=== PATIENT | female | born 1955 | race Two or more races ===

== ENCOUNTER 2025-05-18 18:14 | Emergency (ER) | payer MEDICAID, SELFPAY ==
--- NOTE | 2025-05-18 18:41 | EDNOTE_ITS ---
ED Abdominal Pain RME/HPI General Chief Complaint: Abdominal Pain Stated complaint: ABD PAIN, L) BACK PAIN, HEADACHE Time seen by provider: 05/18/25 18:46 Arrival date/time: 05/18/25 18:14 RME / HPI RME / HPI narrative: See MDM for Dr. Feliz's HPI documentation. Related Data Previous Rx's ?Medication ?Instructions ?Recorded docusate sodium 100 mg capsule 100 mg PO BID #40 caps 08/27/23 (Colace) hydrocodone 5 mg-acetaminophen 325 1 tab PO Q6H PRN pa in (scale score 08/27/23 mg tablet 7-10) #20 tabs ibuprofen 600 mg tablet 600 mg PO Q8H PRN pain (scal e 08/27/23 score 4-6) #15 tabs sulfamethoxazole 800 1 tab PO BID #10 tabs mg-trimethoprim 160 mg tablet cephalexin 500 mg capsule 500 mg PO QID #20 caps 01/01 dicyclomine 20 mg tablet 20 mg PO QID PRN abdominal p ain 01/02/24 #14 tabs lorazepam 0.5 mg tablet (Ativan) 0.5 mg PO BID PRN anx iety #14 tabs 01/02/24 acetaminophen 300 mg-codeine 30 mg 1 tab PO Q8H PRN pa in #20 tabs 05/18/25 tablet cefdinir 300 mg capsule 300 mg PO BID #14 caps 05/18 ondansetron 4 mg disintegrating 4 mg PO TID PRN nausea and 05/18/25 tablet vomiting 30 days #10 tabs Allergies Allergy/AdvReac Type Severity Reaction Status Date / Time No Known Allergies Allergy Verified 05/18/25 18:19 Review of Systems Review of Systems Systems Reviewed: All systems reviewed, normal except as documented Past Medical History Past Medical History NEUROLOGIC: Positive Seizures; Negative Neurological Disorders CARDIAC: Positive Hypertension; Negative Cardiac Disorders or Congestive Heart Failure RESPIRATORY: Negative Chronic Obstructive Pulmonary Disease (COPD) or Asthma GASTROINTESTINAL: Positive Gastrointestinal Disorders and Gall Bladder Disease GENITOURINARY: Negative Genitourinary Disorders or Renal Disease REPRODUCTIVE: Positive Previous Pregnancies MUSCULOSKELETAL: Positive Musculoskeletal Disorders and Arthritis ENT: Positive Cataracts (bilateral) and Retinal Detachment (left eye) ENDOCRINE: Positive Endocrine Disorders and Diabetes Mellitus Type 2; Negative Diabetes Mellitus Type 1 HEMATOLOGIC: Negative Blood Disorders or Sickle Cell Disease OTHER HISTORY: Positive Hospitalization; Negative Autoimmune Disease, Shingles, Blood Transfusions, Blood Transfusion Reaction, Anesthesia Reactions or Cancer Family History FAMILY HISTORY: Positive Family Cancer; Negative Family Psychiatric Problems, Family Respiratory Disorders, Family Cardiac Disorders, Family Gastrointestinal Problems, Family Surgery or Family Anesthesia Reaction Surgical History SURGICAL: Positive Section (x3) Social History SMOKING STATUS: Never smoker SUBSTANCE USE: does not use ED Exam Narrative Physical exam: See [facility] for Dr. Feliz's physical exam documentation. Course Quality Measures none Orders Category Date Time Status Bedside COVID-19 Antigen Test NOW Care 05/18/25 18:47 Completed Bedside Influenza A&B Antigen Test NOW Care 05/18/25 18:47 Completed EKG (ED ONLY) *Do not use* NOW Care 05/18/25 18:48 Completed Saline [Insert IV] NOW Care 05/18/25 18:47 Completed Straight [In and Out Catheter] X1 Care 05/18/25 18:[address] chest abdomen pelvis wo Stat Exams 05/18/25 18:49 Completed EKG (ED Only) Stat Exams 05/18/25 18:48 Draft US gall bladder Stat Exams 05/18/25 18:49 Completed XR chest 1V portable Stat Exams 05/18/25 18:49 Completed Amylase Stat Lab 05/18/25 20:30 Completed BNP [B-Type Natriuretic Peptide] Stat Lab 05/18/25 20:30 Completed Beta Hydroxybutyrate Stat Lab 05/18/25 20:30 Completed Bilirubin,Direct Stat Lab 05/18/25 20:30 Completed Blood Culture (Lab) Stat Lab 05/18/25 20:30 Received CBC Stat Lab 05/18/25 20:30 Completed CMP [Comprehensive Metabolic Panel] Stat Lab 05/18/25 20:30 Completed CRP [C-Reactive Protein] Stat Lab 05/18/25 20:30 Completed ESR [Sed Rate (ESR)] Stat Lab 05/18/25 20:30 Completed Influenza A & B Rapid Panel Stat Lab 05/18/25 19:37 Completed Lactate (Lactic Acid) Stat Lab 05/18/25 20:30 Completed Lipase Stat Lab 05/18/25 20:30 Completed Magnesium Stat Lab 05/18/25 20:30 Completed Procalcitonin Stat Lab 05/18/25 20:30 Completed TSH [Thyroid Stimulating Hormone] Stat Lab 05/18/25 20:30 Completed Troponin I Stat Lab 05/18/25 20:30 Completed UA, C/S IF [Urinalysis, C/S if Indicated] Stat Lab 05/18/25 19:36 Completed Urine Culture Stat Lab 05/18/25 19:36 Received Insulin Regular Med 05/18/25 21:25 Discontinued 5 unit IV X1 ONE Morphine* Inj Med 05/18/25 18:48 Discontinued 1 mg IV X1 ONE Ondansetron Inj [Zofran Inj] Med 05/18/25 18:48 Discontinued 4 mg IVP X1 ONE Sodium Chloride 0.9% 1000 ml [Ns] 1,000 ml Med 05/18/25 18:48 Discontinued IV 999 mls/hr cefTRIAXone/D5w 1gm IV premix [Rocephin/D5w 1gm IV Med 05/18/25 20:06 Discontinued premix] 1 gm in 50 ml IV X1 Vital Signs Vital signs: Vital Signs Temperature 97.8 F 05/18/25 18:49 Pulse Rate 87 05/18/25 18:49 Respiratory Rate 18 05/18/25 18:49 Blood Pressure 131/79 H 05/18/25 18:49 Pulse Oximetry (%) 99 05/18/25 18:49 Oxygen Delivery Method Room Air 05/18/25 18:49 Abdominal Pain MDM MDM Narrative MDM Narrative:: This section includes all my notes and documentations, including HPI, PE, and ED course. Duran Feliz MD HPI: 69yo female here with left-sided chest/abdominal pain for the past few days. Occasional nausea. No fever. No shortness of breath. No urinary symptoms. No other complaints. ROS: All negative except as documented in HPI. Physical Exam: General: Alert and oriented. Appears uncomfortable. Eyes: Conjunctivae and lids clear. ENT: No nasal congestion. Neck: Supple. Heart: RRR. Lungs: No respiratory distress. Good air movement. No rhonchi, wheezing, rales. Abdomen: Soft with equivocal tenderness, difficult to localize. Normal bowel sounds. No distension. No rebound or guarding. Back: No CVA tenderness. Skin: Warm and dry. Neuro: Alert and oriented X 3. I reviewed all diagnostic test results. My interpretation of the EKG is sinus rhythm with nonspecific ST-T changes. My interpretation of the chest x-ray is no pneumonia. My review of the gallbladder US report is NAD. My review of the CT abdomen pelvis report is NAD. Blood tests are unremarkable. UA remarkable for positive nitrite, positive leukocyte esterase, 41 RBCs, 1193 WBCs, and 4+ bacteria. COVID/Influenza negative. At this point, diagnoses include: UTI Treatment here included: Morphine 1 mg IV Zofran 4 mg IV Rocephin 1 g IV IV fluid Significant improvement noted. Recommend outpatient management. Based on my best medical judgment, made decision no further evaluation or treatment indicated at this time. Patient understands and agrees to the discharge instructions customized and printed, see below. Discharge instructions from Dr. Feliz: 1. After evaluation, you have urine infection (see attached handout). There is no life-threatening condition, such as heart attack. 2. Take cefdinir to kill the germs causing the infection. 3. For good hydration, increase oral fluid and maintain clear urine. If dark or yellow, increase oral fluid. Zofran for nausea/vomiting. Tylenol with codeine for severe pain. 4. See a private doctor on 05/21/2025 for recheck. Ask to review all test results and official radiology reports, to make sure you receive all necessary follow-ups and monitoring. Including the final urine culture results from today to make sure cefdinir doesn't need to be changed due to resistance. 5. Seek immediate medical care with worsening, fever, or with any concerns. Duran Feliz MD Patient data External records reviewed:: [facility] previous records (Per chart review, patient was seen here on 07/18/23 for gallstones.) Clinical information provided by:: patient Social determinants that could affect healthcare access:: none Patient has the following chronic illnesses:: DM, HTN How is presenting disease/condition affected by chronic disease/condition?: uneffected by Evaluation data The following diagnostics were reviewed and interpreted by me:: lab results, radiology exam(s) and EKG tracing(s) (My interpretation of the EKG is: Sinus rhythm (62 bpm) with nonspecific ST-T changes. Duran Feliz MD) Lab and/or radiology exams considered but not ordered:: none Interpretation Summary: I reviewed all diagnostic test results. My interpretation of the EKG is sinus rhythm with nonspecific ST-T changes. My interpretation of the chest x-ray is My review of the gallbladder US report is NAD. My review of the CT abdomen pelvis report is NAD. Blood tests are unremarkable except for CRP 3.7, Glucose 332. UA remarkable for positive nitrite, positive leukocyte esterase, 41 RBCs, 1193 W BCs, and 4+ bacteria. COVID/Influenza negative. Medications / Prescriptions Medications or Prescriptions considered but not ordered:: none Medication administrations:: Medication Administration History Discontinued Medications Sodium Chloride (Ns) 1,000 mls @ 999 mls/hr IV .Q1H1M ONE Stop: 05/18/25 19:48 Last Admin: 05/18/25 20:28 Dose: 999 mls/hr Documented By: EE Ceftriaxone Sodium/Dextrose (Rocephin/D5w 1gm Iv Premix) 1 gm in 50 mls @ 100 mls/hr IV X1 ONE Stop: 05/18/25 20:35 Last Infusion: 05/18/25 21:09 Dose: Infused Documented By: Admin: 05/18/25 20:26 Dose: 100 mls/hr Documented By: JAVI Insulin Human Regular (Insulin Hum Regular 1 Unit/0.01 Ml (Per Unit)) 5 unit 0.1 unit/kg (5 unit) IV X1 ONE Stop: 05/18/25 21:26 Last Admin: 05/18/25 21:58 Dose: Not Given Documented By: JAVI Non-Admin Reason: Cancelled by Provider Morphine Sulfate (Morphine Sulf Inj 4 Mg/Ml Vial) 1 mg IV X1 ONE Stop: 05/18/25 18:49 Last Admin: 05/18/25 20:27 Dose: 1 mg Documented By: JAVI Ondansetron HCl (Ondansetron Inj 2 Mg/Ml Inj 2 Ml) 4 mg IVP X1 ONE; Protocol Stop: 05/18/25 18:49 Last Admin: 05/18/25 20:27 Dose: 4 mg Documented By: JAVI Treatment here included: Morphine 1 mg IV Zofran 4 mg IV Rocephin 1 g IV IV fluid Consultations Consultation(s) initiated? (list below): No Diagnosis Differential diagnosis abdominal pain: constipation, diverticulitis, gastroenteritis, pancreatitis and other (kidney stone, UTI) Most likely diagnosis given after review of the tests above:: UTI Admission Indicated Admission indicated?: not indicated Explain why admission is indicated or not indicated:: With significant improvement and no condition needing emergent intervention, there was no indication for admission. Admission Request Was there a request for admission?: No Disposition Plan Disposition Plan: Discharge Discharge Attestation Discharge Attestation: The patient and all family members were given an opportunity to ask questions and understood the discharge instructions. Discharge instructions specifically effects, indications for sooner follow up or return to the emergency department, and the expected course of current diagnosis. Patient condition: Stable Discharge Plan Plan Patient Disposition: HOME (Self Care) Prescriptions/Referrals Prescriptions/Med Rec: New acetaminophen-codeine 300-30 mg tablet 1 tab PO Q8H MDD 6 PRN (Reason: pain) Qty: 20 0RF ondansetron 4 mg tablet,disintegrating 4 mg PO TID PRN (Reason: nausea and vomiting) 30 Days Qty: 10 0RF cefdinir 300 mg capsule 300 mg PO BID Qty: 14 0RF No Action docusate sodium [Colace] 100 mg capsule 100 mg PO BID Qty: 40 0RF ibuprofen 600 mg tablet 600 mg PO Q8H PRN (Reason: pain (scale score 4-6)) Qty: 15 0RF hydrocodone-acetaminophen 5-325 mg tablet 1 tab PO Q6H MDD 4 PRN (Reason: pain (scale score 7-10)) Qty: 20 0RF sulfamethoxazole-trimethoprim 800-160 mg tablet 1 tab PO BID Qty: 10 0RF dicyclomine 20 mg tablet 20 mg PO QID PRN (Reason: abdominal pain) Qty: 14 0RF lorazepam [Ativan] 0.5 mg tablet 0.5 mg PO BID PRN (Reason: anxiety) Qty: 14 0RF cephalexin 500 mg capsule 500 mg PO QID Qty: 20 0RF Referrals: Vernon Velasquez MD [Primary Care Provider, Family Practice] - In 1 week Problem List Clinical Impression: UTI (urinary tract infection) Patient/Caregiver Discharge Instructions Education Materials: ED CYSTITIS Female Adult Additional Instructions: Discharge instructions from Dr. Feliz: 1. After evaluation, you have urine infection (see attached handout). There is no life-threatening condition, such as heart attack. 2. Take cefdinir to kill the germs causing the infection. 3. For good hydration, increase oral fluid and maintain clear urine. If dark or yellow, increase oral fluid. Zofran for nausea/vomiting. Tylenol with codeine for severe pain. 4. See a private doctor on 05/21/2025 for recheck. Ask to review all test results and official radiology reports, to make sure you receive all necessary follow-ups and monitoring. Including the final urine culture results from today to make sure cefdinir doesn't need to be changed due to resistance. 5. Seek immediate medical care with worsening, fever, or with any concerns. Instrucciones de rebekah del Dr. Feliz: 1. Tras la evaluaci?n, presenta brian infecci?n urinaria (consulte el folleto adjunto). No existe ninguna afecci?n potencialmente mortal, ambika un infarto. 2. [place] cefdinir para eliminar los g?rmenes que causan la infecci?n. 3. Para brian buena hidrataci?n, aumente la ingesta de l?quidos y mantenga la orina kirk. Si la orina es oscura o amarilla, aumente la ingesta de l?quidos. Zofran para las n?useas y los v?mitos. Tylenol con code?na para el dolor intenso. 4. Consulte con un m?dico particular el 05/21/2025 para brian nueva revisi?n. Solicite la revisi?n de todos los resultados de las pruebas y los informes radiol?gicos oficiales para asegurarse de recibir todos los controles y monitoreos necesarios. Incluya los resultados finales del urocultivo de hoy para asegurarse de que no sea necesario cambiar la dosis de cefdinir debido a la resistencia. 5. Busque atenci?n m?dica inmediata si presenta empeoramiento, fiebre o cualquier inquietud. Print Language: Bel[place]ian Stand Alone Forms: Elisa Award Info., Patient Portal Info Letter
--- NOTE | 2025-05-18 18:48 | EKG_ITS ---
[facility] (Formerly [facility]) Test Date: 2025-05-18 Pat Name: ISADORA KOCH Department: Room: - Gender: Female [employer]le [employer]ic: : 1955 Requested By: Duran Boateng Order Number: [id number] Reading MD: Duran Boateng Measurements Intervals [place] Rate: 82 P: 71 NV: 145 QRS: 32 QRSD: 74 T: 86 QT: 349 QTc: 409 Interpretive Statements SINUS RHYTHM No previous ECG available for comparison /store/S0/[id number]/ecg/[id number].pdf
[2025-05-18 18:49] VITALS: BP 131/79; PULSE 87; RESP 18; TEMP 36.6; O2SAT 99
--- NOTE | 2025-05-18 18:49 | XR_ITS ---
Examination: CT chest, without intravenous contrast. CT abdomen, without intravenous contrast. CT pelvis, without intravenous contrast. 2-D sagittal and coronal reconstructions. 3-D reconstructions. Date and time of exam: May 18, 2025, 194 hours, comparison December 02, 2023 INDICATIONS: Onset chest abdominal and left flank pain beginning 3 weeks ago CTDI vol (mgy) 4.74 DLP (MGycm) 300 Technique: Multiple CT images, 3.0 mm slice thickness, obtained chest, abdomen, pelvis, with the high-resolution 64 slice scanner.. Sagittal and coronal 2-D reconstructions are obtained. 3-D reconstructions Low dose protocols were performed. One or more of the following dose reduction techniques were used; automated exposure control, adjustment of the mA and/or KV according to patient size, use of iterative reconstruction technique. Findings: 28 mm right thyroid nodule No thoracic aortic aneurysm dilatation Pulmonary artery segments are not enlarged. 5 mm pulmonary nodule right upper lobe, 2 mm pulmonary nodule right upper lobe, 2 mm nodule lingular segment 3 mm pulmonary nodule right middle lobe No lobar pneumonia or pulmonary edema No visualized liver or splenic lesion Absent gallbladder No pancreatic mass Moderate renal scar formation Mild wall thickening pelvicalyceal systems and ureters Normal appendix No bowel obstruction, mild small bowel ileus Absent uterus No pelvic mass No diverticulitis Thickening of the urinary bladder wall up to 8 mm IMPRESSION: Multiple noncalcified pulmonary nodules as above, with the studies baseline recommend 6-month follow-up CT chest without contrast No pneumonia or pulmonary edema Moderate renal scar formation Wall thickening involving the pelvicalyceal systems and ureters consistent with urinary tract infection Thickening of the urinary bladder, cystitis high on the differential list
--- NOTE | 2025-05-18 18:49 | XR_ITS ---
EXAMINATION: PA chest single view TECHNIQUE: Upright PA chest single view Date and time: May 18, 2025, 192 hours INDICATIONS: Shortness of breath today. FINDINGS: Normal heart size Subsegmental atelectasis in the left lung. Mild vascular congestion. Accentuation of basilar bronchovascular markings. No lobar pneumonia or pulmonary edema IMPRESSION: Basilar bronchitis pattern
--- NOTE | 2025-05-18 18:49 | XR_ITS ---
Examination: Abdomen sonogram, Limited Date and time of exam: May 18, 2025, 1900 hours Indications epigastric pain beginning 3 months ago Technique: Real-time gomez scale transabdominal sonographic images of the upper abdomen obtained. Findings: Absent gallbladder. Normal common bile duct 0.6 cm Pancreatic head 2.1 cm Liver 14.7 cm no liver lesions Normal hepatopetal portal venous flow Patent IVC IMPRESSION: Negative for common bile duct stones Liver normal size no focal liver lesions
[2025-05-18 19:44] LABS: Collection Type, Urine Clean Catch
[2025-05-18 19:53] LABS: Bacteria,Urine 4+; Bilirubin,Urine Negative (Negative); Blood,Urine 2+ (Negative); Clarity,Urine Turbid (Clear/Hazy); Color,Urine Drk Yellow (Lt Yel-Yel); Culture Indicated,Urine Yes; Glucose, Urine 3+ (Negative); Ketones,Urine Negative (Negative); Leukocyte Esterase,Urine Positive (Negative); Nitrite,Urine Positive (Negative); PH,Urine 5.5 (5.0-7.0); Protein,Urine 1+ (Neg - Trace); RBC,Urine 41 /hpf (0-3); Specific Gravity,Urine 1.004 (1.001-1.035); Squamous Epithelial Cell,Urine 8 /hpf (0-5); Urobilinogen,Urine Negative mg/dL (0.0-1.0); WBC,Urine 1193 /hpf (0-5)
[2025-05-18 20:15] LABS: Influenza A Ag Negative; Influenza B Ag Negative
[2025-05-18] MEDS: cefTRIAXone/D5w 1gm IV premix 1 GM/50 ML BAG IV (20:26)
[2025-05-18] MEDS: MORPHINE SULF INJ 4 MG/ML VIAL 1 MG IV (20:27)
[2025-05-18] MEDS: ONDANSETRON INJ 2 MG/ML INJ 2 ML 4 MG IVP (20:27)
[2025-05-18] MEDS: SODIUM CHLORIDE 0.9% 1000 ML 1,000 ML 999 ML IV (20:28)
[2025-05-18 20:42] LABS: Lactate (Lactic Acid) 0.8 mMol/L (0.4-2.0)
[2025-05-18 20:46] LABS: Beta Hydroxybutyrate 0.2 mmol/L (<0.6)
[2025-05-18 20:48] LABS: Basophils # (Auto) 0.1 Thou/mm3 (0.0-0.2); Basophils % (Auto) 1 % (0-2.5); Eosinophils # (Auto) 0.0 Thou/mm3 (0.0-0.5); Eosinophils % (Auto) 0 % (0-10); Hematocrit 31.8 % (36.0-46.0); Hemoglobin 10.6 g/dL (12.0-16.0); Immature Granulocytes Auto 0.05 Thou/mm3 (0.00-0.00); Lymphocytes # (Auto) 1.7 Thou/mm3 (1.0-4.8); Lymphocytes % (Auto) 18 % (10-50); Mean Corpuscular HGB Conc 33.3 g/dl (31.0-37.0); Mean Corpuscular Hemoglobin 27.7 pg (25.0-35.0); Mean Corpuscular Volume 83 fL (80-100); Monocytes # (Auto) 1.2 Thou/mm3 (0.0-0.8); Monocytes % (Auto) 13 % (0-12); Neutrophils # (Auto) 6.1 Thou/mm3 (1.8-7.7); Neutrophils % (Auto) 67 % (37-80); Nucleated Red Blood Cell # 0.00 Thou/mm3 (0.00-0.00); Nucleated Red Blood Cell % 0 /100 WBC (0); Platelet Count 381 Thou/mm3 (140-440); RDW Standard Deviation 38.8 fL (36.4-46.3); Red Blood Count 3.82 Miln/mm3 (4.00-5.20); White Blood Count 9.1 Thou/mm3 (3.6-11.0)
[2025-05-18 21:06] LABS: Sed Rate (ESR) 60 mm/hr (0-30)
[2025-05-18 21:24] LABS: Alanine Aminotransferase 10 U/L (10-49); Albumin, Serum 3.6 gm/dL (3.4-4.8); Albumin/Globulin Ratio 1.0 (1.2-2.2); Alkaline Phosphatase 103 U/L (46-116); Anion Gap 7 (7-16); Aspartate Amino Transferase 16 U/L (0-34); B-Type Natriuretic Peptide 125 pg/mL (0-100); BUN/Creatinine Ratio 12 Ratio (12-20); Bilirubin,Direct < 0.1 mg/dL (0.0-0.3); Bilirubin,Total 0.2 mg/dL (0.3-1.2); Blood Urea Nitrogen 13 mg/dL (9-23); C-Reactive Protein 3.7 mg/dL (0.0-0.9); Calcium 8.6 mg/dL (8.3-10.6); Calcium (Corrected) 8.9 mg/dL (8.5-10.1); Carbon Dioxide 26.4 mMol/L (20.0-31.0); Chloride 98 mMol/L (98-107); Creatinine (Component) 1.1 mg/dL (0.6-1.3); Estimated Creatinine Clearance 36.9 mL/min (>60); Globulin 3.5 gm/dL (2.3-3.5); Glucose 332 mg/dL (74-106); Magnesium 1.9 mg/dL (1.6-2.6); Osmolality,Calculated 275 (275-295); Potassium 4.1 mMol/L (3.4-5.1); Sodium 131 mMol/L (136-145); Total Protein 7.1 gm/dL (5.7-8.2); Troponin I < 0.020 ng/mL (0.0-0.045); eGFR 54 See Note
[2025-05-18 21:25] LABS: Amylase 30 U/L (30-118); Lipase 48 U/L (12-53); Procalcitonin 0.21 ng/ml (0.0-0.49); Thyroid Stimulating Hormone 2.87 uIU/mL (0.55-4.78)
[2025-05-18 21:54] VITALS: BP 187/94; PULSE 80; RESP 18; TEMP 37.1; O2SAT 98
== END 2025-05-18 22:00 | disposition home or self-care (01) ==
PROVIDERS: Emergency Provider Emergency Medicine; PCP Family Medicine
DX: N39.0 Urinary tract infection, site not specified (principal); R10.13 Epigastric pain; R06.02 Shortness of breath; I10 Essential (primary) hypertension
CPT/HCPCS: 36415; 71045; 71250; 74176; 76705; 80053; 81001; 82010; 82150; 82248; 83605; 83690; 83735; 83880; 84145; 84443; 84484; 85025; 85652; 86140; 87040; 87077; 87086; 87186; 87400; 87502; 87811; 93005; 96365; 96375; 99285; J0696; J2270; J2405; J7030

== ENCOUNTER 2025-06-08 17:44 | Inpatient (IN) | payer MEDICAID, SELFPAY ==
[2025-06-08 18:15] VITALS: BP 143/76; PULSE 93; RESP 16; TEMP 36.9; O2SAT 99; BMI 21.4
--- NOTE | 2025-06-08 18:44 | PD.EDRME ---
Rapid Medical Screening Exam [facility] Arrival date/time: 06/08/25 17:44 70F with history of HTN and DM presents to ED with continued lower ab pain and dysuria, as well as N/V. Patient was here several weeks ago for this and was diagnosed with UTI. Patient lost her prescribed ABX. Of note, patient's blood cultures from that visit grew staph aureus in both bottles. Chief Complaint: Abdominal Pain Vital signs: Vital Signs Temperature 98.4 F 06/08/25 18:15 Pulse Rate 93 06/08/25 18:15 Respiratory Rate 16 06/08/25 18:15 Blood Pressure 143/76 H 06/08/25 18:15 Pulse Oximetry (%) 99 06/08/25 18:15 Oxygen Delivery Method Room Air 06/08/25 18:15 Exam: Some LLQ/RLQ tenderness Clinical Impression: UTI vs sepsis vs appy vs diverticulitis vs endocarditis
[2025-06-08 19:25] LABS: Collection Type, Urine Clean Catch
[2025-06-08 19:27] LABS: Lactate (Lactic Acid) 1.2 mMol/L (0.4-2.0)
[2025-06-08 19:29] LABS: Basophils # (Auto) 0.1 Thou/mm3 (0.0-0.2); Basophils % (Auto) 1 % (0-2.5); Eosinophils # (Auto) 0.1 Thou/mm3 (0.0-0.5); Eosinophils % (Auto) 1 % (0-10); Hematocrit 32.7 % (36.0-46.0); Hemoglobin 10.9 g/dL (12.0-16.0); Immature Granulocytes Auto 0.06 Thou/mm3 (0.00-0.00); Lymphocytes # (Auto) 1.7 Thou/mm3 (1.0-4.8); Lymphocytes % (Auto) 18 % (10-50); Mean Corpuscular HGB Conc 33.3 g/dl (31.0-37.0); Mean Corpuscular Hemoglobin 28.0 pg (25.0-35.0); Mean Corpuscular Volume 84 fL (80-100); Monocytes # (Auto) 0.9 Thou/mm3 (0.0-0.8); Monocytes % (Auto) 10 % (0-12); Neutrophils # (Auto) 6.6 Thou/mm3 (1.8-7.7); Neutrophils % (Auto) 70 % (37-80); Nucleated Red Blood Cell # 0.00 Thou/mm3 (0.00-0.00); Nucleated Red Blood Cell % 0 /100 WBC (0); Platelet Count 449 Thou/mm3 (140-440); RDW Standard Deviation 40.2 fL (36.4-46.3); Red Blood Count 3.89 Miln/mm3 (4.00-5.20); White Blood Count 9.5 Thou/mm3 (3.6-11.0)
[2025-06-08 20:02] LABS: Alanine Aminotransferase 13 U/L (10-49); Albumin, Serum 4.1 gm/dL (3.4-4.8); Albumin/Globulin Ratio 1.0 (1.2-2.2); Alkaline Phosphatase 117 U/L (46-116); Anion Gap 7 (7-16); Aspartate Amino Transferase 16 U/L (0-34); BUN/Creatinine Ratio 12 Ratio (12-20); Bilirubin,Total 0.4 mg/dL (0.3-1.2); Blood Urea Nitrogen 13 mg/dL (9-23); Calcium 9.4 mg/dL (8.3-10.6); Calcium (Corrected) 9.4 mg/dL (8.5-10.1); Carbon Dioxide 27.5 mMol/L (20.0-31.0); Chloride 93 mMol/L (98-107); Creatinine (Component) 1.1 mg/dL (0.6-1.3); Estimated Creatinine Clearance 28.2 mL/min (>60); Globulin 4.2 gm/dL (2.3-3.5); Osmolality,Calculated 273 (275-295); Potassium 5.3 mMol/L (3.4-5.1); Procalcitonin 0.06 ng/ml (0.0-0.49); Sodium 127 mMol/L (136-145); Total Protein 8.3 gm/dL (5.7-8.2); Troponin I < 0.002 ng/mL (0.0-0.045); eGFR 53 See Note
[2025-06-08 20:04] LABS: Bacteria,Urine 2+; Bilirubin,Urine Negative (Negative); Blood,Urine 1+ (Negative); Color,Urine Yellow (Lt Yel-Yel); Glucose, Urine 4+ (Negative); Ketones,Urine Negative (Negative); Leukocyte Esterase,Urine Positive (Negative); Nitrite,Urine Negative (Negative); PH,Urine 6.0 (5.0-7.0); Protein,Urine 1+ (Neg - Trace); RBC,Urine 9 /hpf (0-3); Specific Gravity,Urine 1.016 (1.001-1.035); Squamous Epithelial Cell,Urine 6 /hpf (0-5); Urobilinogen,Urine Negative mg/dL (0.0-1.0); WBC,Urine 821 /hpf (0-5)
[2025-06-08 20:04] LABS: Glucose 421 mg/dL (74-106)
[2025-06-08 20:11] VITALS: BP 194/85; PULSE 96; RESP 16; O2SAT 98
--- NOTE | 2025-06-08 20:13 | PD.EDABDPN ---
ED Abdominal Pain RME/HPI General Chief Complaint: Abdominal Pain Stated complaint: ABD PAIN, N/V, SOB, HEADACHE Arrival date/time: 06/08/25 17:44 RME / HPI RME / HPI narrative: 06/08/25 17:44 70F with history of HTN and DM presents to ED with continued lower ab pain and dysuria, as well as N/V. Patient was here several weeks ago for this and was diagnosed with UTI. Patient lost her prescribed ABX. Of note, patient's blood cultures from that visit grew staph aureus in both bottles. DR. ESTES MAIN ED EVALUATION: Patient reportedly seen 2 week POLICY SERVICE COORDINATOR with reported back pain,MORALES, and abdominal pain treated with Rocephin and IV fluids for diagnosed UTI, and discharged to home on Cefdinir which patient reportedly had not been able to obtain. In the interim patient's blood cultures had been positive for Staphylococcus aureus in both bottles. Patient reports ongoing urinary symptoms for 2 months. No reported diarrhea, dizziness, lightheadedness, or near syncope. PMH: Type II DM and HTN only PSH: Appendectomy, Allergies: None Social: Non-smoker, Non-drinker, No illicit drug abuse Exam: Some LLQ/RLQ tenderness Impression: UTI vs sepsis vs appy vs diverticulitis vs endocarditis Related Data Previous Rx's ?Medication ?Instructions ?Recorded docusate sodium 100 mg capsule 100 mg PO BID #40 caps 08/27/23 (Colace) hydrocodone 5 mg-acetaminophen 325 1 tab PO Q6H PRN pain (scale score 08/27/23 mg tablet 7-10) #20 tabs ibuprofen 600 mg tablet 600 mg PO Q8H PRN pain (scale 08/27/23 score 4-6) #15 tabs sulfamethoxazole 800 1 tab PO BID #10 tabs 12/02/23 mg-trimethoprim 160 mg tablet cephalexin 500 mg capsule 500 mg PO QID #20 caps 01/02/24 dicyclomine 20 mg tablet 20 mg PO QID PRN abdominal pain 01/02/24 #14 tabs lorazepam 0.5 mg tablet (Ativan) 0.5 mg PO BID PRN anxiety #14 tabs 01/02/24 acetaminophen 300 mg-codeine 30 mg 1 tab PO Q8H PRN pain #20 tabs 05/18/25 tablet cefdinir 300 mg capsule 300 mg PO BID #14 caps 05/18/25 ondansetron 4 mg disintegrating 4 mg PO TID PRN nausea and 05/18/25 tablet vomiting 30 days #10 tabs Allergies Allergy/AdvReac Type Severity Reaction Status Date / Time No Known Allergies Allergy Verified 06/08/25 17:48 Review of Systems Review of Systems Systems Reviewed: All systems reviewed, normal except as documented Past Medical History Past Medical History NEUROLOGIC: Positive Seizures CARDIAC: Positive Hypertension GASTROINTESTINAL: Positive Gall Bladder Disease MUSCULOSKELETAL: Positive Arthritis ENT: Positive Cataracts and Retinal Detachment ENDOCRINE: Positive Diabetes Mellitus Type 2 Surgical History SURGICAL: Positive Section ED Exam Narrative Physical exam: GEN. APPEARANCE: The patient is alert awake oriented X-3 under mild distress c/o generalized BA, lying down comfortably, does not look ill/toxic. Patient has good eye contact. Patient is cooperative. VITALS: All vitals were reviewed and the pulse ox is 98%, which is normal according to my interpretation HEENT: Normocephalic, atraumatic and nontender. Pupils are equal and reactive. Oral mucosa is moist. NECK: Supple, nontender, no meningismus, no JVD. There is no thyromegaly and no lymphadenopathy. CHEST: Nontender on palpation no deformity and no crepitus. CARDIOVASCULAR: Heart regular rhythm, no murmur or gallop rub or extra beats. LUNGS: Clear to auscultation bilaterally with symmetrical chest rise. No laboring tachypnea or wheezing. No intercostal subcostal retraction. No rales and no rhonchi. ABDOMEN: Soft, flat, mild suprapubic abdominal tederness with noted mild BL CVA tenderness, no guarding or rebound tenderness. There are no abnormal masses palpated. No pulsatile masses or bruits. Active and normal bowel sounds. EXTREMITIES: Normal inspection and palpation. No edema. No cyanosis. Patient is able to move all 4 extremities well SKIN: Warm and dry, no rashes noted. MUSCULOSKELETAL: No lumbar or midline bony tenderness. There is no CVA tenderness. No paraspinal muscle spasm or tenderness. NEURO: Cranial nerves II through XII grossly intact. There are no focal neurologic deficits noted. GCS is 15 PSYCHIATRIC: Patient is in normal mood and affect, cooperative. LYMPHATICS: No major lymphadenopathy noted. Course Quality Measures none Orders Category Date Time Status EKG (ED ONLY) *Do not use* NOW Care 06/09/25 00:[address] abdomen pelvis wo con Stat Exams 06/09/25 00:[address] abdomen wo con Stat Exams 06/09/25 00:00 Stop Req CXR [XR chest 1V] Stat Exams 06/09/25 00:07 Ordered EKG (ED Only) Stat Exams 06/09/25 00:07 Ordered Blood Culture (Lab) Stat Lab 06/08/25 19:12 Received CBC Stat Lab 06/08/25 19:12 Completed CMP [Comprehensive Metabolic Panel] Stat Lab 06/08/25 19:12 Completed Lactate (Lactic Acid) Stat Lab 06/08/25 19:12 Completed Procalcitonin Stat Lab 06/08/25 19:12 Completed Troponin I Stat Lab 06/08/25 19:12 Completed Urinalysis Stat Lab 06/08/25 19:10 Completed Urine Culture Stat Lab 06/08/25 19:10 Received Morphine* Inj Med 06/08/25 20:19 Discontinued 4 mg IVP X1 ONE Ondansetron Inj [Zofran Inj] Med 06/08/25 20:17 Discontinued 4 mg IVP X1 ONE Sodium Chloride 0.9% 1000 ml [Ns] 1,000 ml Med 06/08/25 20:17 Discontinued IV 999 mls/hr cefTRIAXone [Rocephin] 1,000 mg Med 06/09/25 00:07 Active SODIUM CHLORIDE 0.9% (Popper) [Ns 0.9% (P)] 50 ml IV X1 Vital Signs Vital signs: Vital Signs Temperature 98.4 F 06/08/25 18:15 Pulse Rate 93 06/08/25 18:15 Respiratory Rate 16 06/08/25 18:15 Blood Pressure 143/76 H 06/08/25 18:15 Pulse Oximetry (%) 99 06/08/25 18:15 Oxygen Delivery Method Room Air 06/08/25 18:15 Abdominal Pain MDM MDM Narrative MDM Narrative:: Scribe Attestation: ISusan, breanne scribing for and in the presence of Dr. Estes. Provider Notation: Although this document has been carefully reviewed, there may still be some phonetic and other typographical errors. These errors are purely grammatical due to imperfections in the software program and should not be construed in any way to compromise the substance of the patient's medical care during this visit. Patient reportedly seen 2 week POLICY SERVICE COORDINATOR with reported back pain,MORALES, and abdominal pain treated with Rocephin and IV fluids for diagnosed UTI, and discharged to home on Cefdinir which patient reportedly had not been able to obtain. In the interim patient's blood cultures had been positive for Staphylococcus aureus in both bottles. Please see PE findings. Laboratory markers including CBC and serum chemistries demonstrate a normal WBC of 9.5, with mildly elevated platelet count, possibly due to acute phase reactant. Serum chemistries notable for Potassium of 5.3, Blood Sugar of 421, Procalcitonin normal. UA appears to be grossly infected. Received IV fluids, low-dose narcotic analgesics/anti-emetics, and IV ABX. Significant concern for noncompliance so consulted hospitalist for possible admission. Final diagnoses include UTI secondary to E. coli and Positive blood cultures. Patient data External records reviewed:: [facility] previous records (Reviewed prior ED records from 05/18/25. Patient was seen for UTI (urinary tract infection).) Clinical information provided by:: patient Social determinants that could affect healthcare access:: none Patient has the following chronic illnesses:: Seizures, Hypertension, Gall Bladder Disease, Arthritis, Cataracts, Retinal Detachment, Diabetes Mellitus Type 2 How is presenting disease/condition affected by chronic disease/condition?: exacerbated by Evaluation data The following diagnostics were reviewed and interpreted by me:: lab results Lab and/or radiology exams considered but not ordered:: None Interpretation Summary: See MDM above Medications / Prescriptions Medications or Prescriptions considered but not ordered:: None Medication administrations:: Medication Administration History Ceftriaxone Sodium 1,000 mg/ (Sodium Chloride) 50 mls @ 100 mls/hr IV X1 ONE Stop: 06/09/25 00:36 Last Admin: 06/09/25 00:23 Dose: 100 mls/hr Documented By: RC Discontinued Medications Sodium Chloride (Ns) 1,000 mls @ 999 mls/hr IV .Q1H1M ONE Stop: 06/08/25 21:17 Last Infusion: 06/08/25 21:31 Dose: Infused Documented By: Admin: 06/08/25 20:30 Dose: 999 mls/hr Documented By: DT Morphine Sulfate (Morphine Sulf Inj 4 Mg/Ml Vial) 4 mg IVP X1 ONE Stop: 06/08/25 20:20 Last Admin: 06/08/25 20:32 Dose: 4 mg Documented By: DT Ondansetron HCl (Ondansetron Inj 2 Mg/Ml Inj 2 Ml) 4 mg IVP X1 ONE; Protocol Stop: 06/08/25 20:18 Last Admin: 06/08/25 20:31 Dose: 4 mg Documented By: DT See above if any Consultations Consultation(s) initiated? (list below): Yes Consultation #1 (Physician, Specialty, Details): Discussed with resident physician Dr. Gregory for admission. Reviewed the patient?s HPI, PMHx, lab and/or radiology results. Discussed treatment plan. Will consult an admission to the hospitalist. Time: 22:57 Diagnosis Differential diagnosis abdominal pain: abdominal pain, calculus of kidney, constipation, gastroenteritis, small bowel obstruction and other (UTI, Cystitis) Most likely diagnosis given after review of the tests above:: UTI secondary to E. coli and Positive blood cultures. Admission Indicated Admission indicated?: indicated Explain why admission is indicated or not indicated:: UTI secondary to E. coli and Positive blood cultures. Admission Request Was there a request for admission?: Yes Admission Attestation Admission request attestation: Discussed case with [] from Hospitalist service regarding admission. Discussed patients ED course, exam findings, labs, and radiology results. The Hospitalist [agrees,declines] to accept the patient for admission. Disposition Plan Disposition Plan: Admit Discharge Plan Plan Patient Disposition: Admit Acute Care w/in Hospital Prescriptions/Referrals Prescriptions/Med Rec: No Action docusate sodium [Colace] 100 mg capsule 100 mg PO BID Qty: 40 0RF ibuprofen 600 mg tablet 600 mg PO Q8H PRN (Reason: pain (scale score 4-6)) Qty: 15 0RF hydrocodone-acetaminophen 5-325 mg tablet 1 tab PO Q6H MDD 4 PRN (Reason: pain (scale score 7-10)) Qty: 20 0RF sulfamethoxazole-trimethoprim 800-160 mg tablet 1 tab PO BID Qty: 10 0RF dicyclomine 20 mg tablet 20 mg PO QID PRN (Reason: abdominal pain) Qty: 14 0RF lorazepam [Ativan] 0.5 mg tablet 0.5 mg PO BID PRN (Reason: anxiety) Qty: 14 0RF cephalexin 500 mg capsule 500 mg PO QID Qty: 20 0RF acetaminophen-codeine 300-30 mg tablet 1 tab PO Q8H MDD 6 PRN (Reason: pain) Qty: 20 0RF ondansetron 4 mg tablet,disintegrating 4 mg PO TID PRN (Reason: nausea and vomiting) 30 Days Qty: 10 0RF cefdinir 300 mg capsule 300 mg PO BID Qty: 14 0RF Referrals: Vernon Velasquez MD [Primary Care Provider, Family Practice] - In 1 week Problem List Clinical Impression: Urinary tract infection, site not specified, Unspecified Escherichia coli [E. coli] as the cause of diseases classified elsewhere, Blood culture positive Patient/Caregiver Discharge Instructions Print Language: Arabic Stand Alone Forms: Elisa Award Info., Patient Portal Info Letter
[2025-06-08 20:15] LABS: Clarity,Urine Turbid (Clear/Hazy)
[2025-06-08] MEDS: SODIUM CHLORIDE 0.9% 1000 ML 1,000 ML 999 ML IV (20:30)
[2025-06-08] MEDS: ONDANSETRON INJ 2 MG/ML INJ 2 ML 4 MG IVP (20:31)
[2025-06-08] MEDS: MORPHINE SULF INJ 4 MG/ML VIAL IVP (20:32)
[2025-06-08 22:00] VITALS: BP 158/86; PULSE 93; RESP 14; TEMP 37; O2SAT 99
[2025-06-09] VITALS (12 sets, daily range): BP systolic 104–162; BP diastolic 59–126; PULSE 64–110; RESP 14–18; TEMP 36.1–37.2; O2SAT 96–99; BMI 21.2
--- NOTE | 2025-06-09 00:07 | EKG_ITS ---
[facility] Test Date: 2025-06-09 Pat Name: ISADORA KOCH Department: Room: - Gender: Female Dramatic Agent: : [id number] Requested By: Courtney Henson Order Number: [id number] Reading MD: Courtney Henson Measurements Intervals [place] Rate: 88 P: 74 FL: 150 QRS: 24 QRSD: 74 T: 91 QT: 336 QTc: 408 Interpretive Statements SINUS RHYTHM MINIMAL ST DEPRESSION [0.025+ mV ST DEPRESSION] ABNORMAL QRS-T ANGLE [QRS-T AXIS DIFFERENCE > 60] Compared to ECG 05/18/2025 18:56:47 ST (T wave) deviation now present /store/S0/[id number].pdf
--- NOTE | 2025-06-09 00:07 | XR_ITS ---
EXAMINATION: AP chest single view TECHNIQUE: AP portable upright chest single view Date and time: June 09, 2025, 0041 hours, comparison May 18, 2025 INDICATIONS: Chest pain today FINDINGS: Scarring in the left lung No interval pneumonia or pulmonary edema. Normal heart size Prominent osteopenia IMPRESSION: No interval pneumonia or pulmonary edema
--- NOTE | 2025-06-09 00:09 | XR_ITS ---
Examination: CT abdomen and pelvis without contrast. Coronal 3-D reconstructions. Sagittal 2-D reconstructions. Date and time of exam: June 09, 2025, 0116 hours, comparison May 18, 2025 INDICATIONS: Urinary tract infections abdominal pain nausea vomiting today CTDI: vol (mGy): 4.81 DLP: (mGycm): 224 Technique: Axial images of the abdomen have been obtained, 3 mm slice thickness Intravenous contrast material has not been administered. Low dose protocols were performed. One or more of the following dose reduction techniques were used; automated exposure control, adjustment of the mA and/or KV according to patient size, use of iterative reconstruction technique. Findings: 4 mm pleural-based nodule right lower lobe No visualized liver lesion Gastric mucosa appears thickened Absent gallbladder No common hepatic or common bile duct stones. No pancreatic mass. Spleen not enlarged. Moderate renal scar formation Perinephric stranding Mild wall thickening involving the renal calyces and pelvicalyceal systems, no renal or ureteral calculi Normal appendix No bowel obstruction Distended urinary bladder No pelvic mass Mild urinary bladder wall thickening IMPRESSION: Suspicious for bilateral urinary tract infection No hydronephrosis or ureteral calculi Normal appendix No bowel obstruction Mild cystitis pattern
--- NOTE | 2025-06-09 00:20 | ESHP_ITS ---
Documentation for date of: 06/09/25 [facility] History of Present Illness Chief complaint: Burning Micturation, Abdominal Pain History of present illness: This is a 70 year old female with past medical history of Hypertension,DM(not on any medications) presented to the ED with complaints of burning micturition and abdominal pain. She complains of having burning micturition, urinary frequency, urinary urgency for 2 months. She had a visit to the ED on 05/20 with a discharged her with home medications cefdinir. But the patient did not complete her oral antibiotic course at her home because she lost her medications. Blood and urine culture were taken at the previous ED visit. Blood culture shows growing Staph aureus in 2 out of 2 bottles and urine culture showing E. coli growing in the urine. She endorses chills, nausea, weakness and 1 episode of vomiting but denies any fever, diarrhea, hematemesis, melena She also complains of cramping type of abdominal pain around the flank area and suprapubic area radiating to the groin and chest area. She complains of burning type of chest pain especially when she does not eat food for a while. She endorses burning sensation in the chest as of GERD but denies any chest tightness, palpitations. She endorses a dull headache but denies any blurriness of vision, dizziness, seizure episodes. Today ED visit vitals initial BP 143/76, pulse rate 93, respiratory 16, temperature 98.4, saturating 99% on room air. Pertinent lab findings are WBC 9.5, hemoglobin 10.9, hematocrit 32.7, platelets 447, sodium 127, potassium 5.3, chloride 93, serum blood glucose 421, estimated creatinine clearance 28.92, eGFR 53, lactate normal, ALP 117, urinary drug screen showing turbid urine, leukocyte esterase positive, WBC 821, urine bacteria 2+ CT abdomen and pelvis showing mild prominence of bilateral renal pelvicalyceal system and ureter and bilateral perinephric fat stranding. Past medical history: History of hypertension, diabetes but not on any medications. Uses herbal supplements lazaro and other things for her GERD and UTI. Past surgical history: History of appendectomy in the past Social history: Denies alcohol, smoking or any other drug usage. Family history: Noncontributory Allergy history: NKDA Review of Systems Review of Systems Systems Reviewed: All systems reviewed, normal except as documented Exam Vital Signs Temp Pulse Resp BP Pulse Ox O2 Del Method 98.6 F 93 14 158/86 H 99 Room Air 06/08/25 22:00 06/08/25 22:00 06/08/25 22:00 06/08/25 22:00 06/08/25 22:00 06/08/25 22:00 Narrative Exam GENERAL: NAD, AAOx3 HEENT: Moist mucosa. Eyes open, symmetrical, & clear CARDIO: Regular rhythm Noted. No Murmurs. PULM: No noted coughing/dyspnea CTA B/L, no R/W/R GI: Abdomen soft, nondistended, Tenderness on palpation of Suprapubic area. Left flank tenderness on pecussion SKIN/MSK/EXT: No wounds/rashes/amputations, no pain on palpation.. Pedal pulses present B/L NEURO: AAOx3, no focal neuro deficits, able to move all 4 extremities Results: Labs 06/11/25 05:30 06/11/25 05:30 Labs: Short CBC 06/08/25 Range/Units 19:12 WBC 9.5 (3.6-11.0) Thou/mm3 Hgb 10.9 L (12.0-16.0) g/dL Hct 32.7 L (36.0-46.0) % Plt Count 449 H D (140-440) Thou/mm3 BMP 06/08/25 19:12 Sodium 127 L Potassium 5.3 H Chloride 93 L Carbon Dioxide 27.5 BUN 13 Creatinine 1.1 Glucose 421 H* Calcium 9.4 Cardiac Enzymes 06/08/25 Range/Units 19:12 Troponin I < 0.002 (0.0-0.045) ng/mL Liver Function 06/08/25 Range/Units 19:12 Total Bilirubin 0.4 (0.3-1.2) mg/dL AST 16 (0-34) U/L ALT 13 (10-49) U/L Alkaline Phosphatase 117 H (46-116) U/L Albumin 4.1 (3.4-4.8) gm/dL Urine 06/08/25 Range/Units 19:10 Urine Color Yellow (Lt Yel-Yel) Urine Clarity Turbid A (Clear/Hazy) Urine pH 6.0 (5.0-7.0) Ur Specific [place] 1.016 (1.001-1.035) Urine Protein 1+ A (Neg - Trace) Urine Glucose (UA) 4+ A (Negative) Quality Measures Quality Measures VTE prophylaxis Advance care planning discussed with:: patient Medications Home Medications and Allergies Allergies Allergy/AdvReac Type Severity Reaction Status Date / Time No Known Allergies Allergy Verified 06/08/25 17:48 Visit Medications Ceftriaxone Sodium 1,000 mg/ (Sodium Chloride) 50 mls @ 100 mls/hr IV X1 ONE Stop: 06/09/25 00:36 Discontinued Medications Sodium Chloride (Ns) 1,000 mls @ 999 mls/hr IV .Q1H1M ONE Stop: 06/08/25 21:17 Last Infusion: 06/08/25 21:31 Dose: Infused Morphine Sulfate (Morphine Sulf Inj 4 Mg/Ml Vial) 4 mg IVP X1 ONE Stop: 06/08/25 20:20 Last Admin: 06/08/25 20:32 Dose: 4 mg Ondansetron HCl (Ondansetron Inj 2 Mg/Ml Inj 2 Ml) 4 mg IVP X1 ONE; Protocol Stop: 06/08/25 20:18 Last Admin: 06/08/25 20:31 Dose: 4 mg Assessment & Plan Plan This is a 70 year old female with past medical history of Hypertension,DM(not on any medications) presented to the ED with complaints of burning micturition and abdominal pain. She was admitted for complicated UTI. # Acute pyelonephritis # complicated UTI Burning sensation, urinary urgency going on for 2 months. Diagnosed with UTI but did not complete home course of oral antibiotics Suprapubic tenderness, left flank tenderness Urinalysis showing leukocyte esterase positive, urine WBC 821, urine bacteria 2+. CT abdomen showing mild prominence of bilateral renal pelvic calyceal system and ureter and bilateral perinephric fat stranding but no renal calculi or obstruction. Urine culture on the previous visit grown E. coli sensitive to ceftriaxone ?Gave her ceftriaxone 1 g IV and started on course of ceftriaxone daily 1 g. -For her dehydration gave 1 L of RL and started on 60 cc of Ringer lactate ?Morphine 2 g every 4 hour has required for her pain # Bacteremic Blood cultures during the past visit 2 weeks back grown staph aureus in 2 out of 2 bottles. ?Follow-up with blood and urine cultures from today visit. ?Ordered echo Doppler to rule out any vegetations in the heart valves because of her gram-positive bacteremia. # GERD. Complaints of burning chest pain when she does not eat food for long time, regurgitation of acid. ?Starting on pantoprazole 40 mg p.o. ?Continue to monitor. # Borderline Hyperkalemia Initial potassium is 5.3. ?Give her 5 units of insulin ?Continue to follow-up with her labs # Diabetes # Hyperglycemia Initial blood glucose was 421 and had a history of diabetes but does not take any medications at home. Repeat blood glucose 336, gave 5 units of insulin Degludec ?Starting on sliding scale and frequent blood glucose checks # Normocytic anemia Hemoglobin 10.9, hematocrit 32.7 ?Continue to monitor. # Hypertension Initial blood pressure is 143/76 but increase it to 190/100 ?Gave her labetalol 10 mg and started on IV fluids. ?Continue to monitor. Code status: Full DVT prophylaxis: Heparin Diet: Low salt [place]: None Lines: PIV Supplemental O2: none Disposition: Med Tele I discussed this case with my senior Dr. Gregory and my attending Dr. Baldomero Henson MD PGY1 Attending Provider Attestation/Addendum After examination of the patient and review of the clinical data I feel that this patient needs admission to the hospital for further treatment/evaluation. Plan of care discussed with patient and is in agreement. I Christian Alexandre MD, attest that I was physically present for montero portions of evaluation, and examined patient, labs and imagings and plan of care were discussed with IM residents team, and I agree with the findings and plans documented above.
[2025-06-09] MEDS: cefTRIAXone 1,000 MG in SODIUM CHLORIDE 0.9% (Popper) 50 ML 100 MG IV (00:23)
--- NOTE | 2025-06-09 01:20 | ECHO_ITS ---
Patient Info Name: Sara Vaughan Age: 70 years : 1955 Gender: Female Ht: 145 cm Wt: 45 kg BSA: 1.35 m2 BP: 129 / 63 mmHg HR: 78 bpm Heart Rhythm: Sinus Rhythm Exam Date: 06/09/2025 8:14 AM Admit Date: 06/09/2025 Site: [facility] Room Number: [id number] Patient Status: I Exam Type: CA echo doppler complete Billing Customer Service Representative: Keysha Burt Ordering Physician: Courtney Henson Study Info Indications Staph aureus Nacteremia - Primary Location: S3SX Left Ventricular Outflow Tract Name Value Normal LVOT 2D LVOT Diameter 1.8 cm LVOT Doppler LVOT Peak Velocity 120 cm/s LVOT Mean Gradient 3 mmHg LVOT VTI 27 cm LVOT VTI/AV VTI Ratio 0.8 LVOT Stroke Volume 69 ml Pulmonic Valve Name Value Normal PV Doppler PV Peak Velocity 81 cm/s PV Regurgitation Doppler MI Peak End Diastolic Velocity 92 cm/s Mitral Valve Name Value Normal MV Doppler MV Decel [place] 400 cm/s2 MV PHT 52 ms MV Area (PHT) 4.2 cm2 4.0-5.0 MV Diastolic Function MV E Peak Velocity 72 cm/s MV A Peak Velocity 93 cm/s MV E/A 0.8 MV Annular TDI MV Septal e' Velocity 6.0 cm/s MV E/e' (Septal) 12.0 MV Lateral e' Velocity 6.9 cm/s MV E/e' (Lateral) 10.5 MV e' Average 6.42 cm/s MV E/e' (Average) 11.2 Tricuspid Valve Name Value Normal TV Regurgitation Doppler TR Peak Velocity 216 cm/s Estimated PAP/RSVP RA Pressure 3 mmHg <=5 PA Systolic Pressure 22 mmHg <36 RV Systolic Pressure 22 mmHg <36 Aortic Valve Name Value Normal AV 2D/MM AV Cusp Sep (MM) 1.2 cm AV Doppler AV Peak Velocity 157 cm/s AV Mean Gradient 5 mmHg AV VTI 35 cm AV Area (Cont Eq VTI) 2.0 cm2 >=3.0 AV Area (Cont Eq Antonio) 1.9 cm2 AV DI (Antonio) 0.76 AV Regurgitation 2D LVOT Area 2.5 cm2 Ventricles Name Value Normal LV Dimensions 2D/MM IVS Diastolic Thickness (2D) 0.7 cm 0.6-0.9 LVID Diastole (2D) 4.0 cm 3.8-5.2 LVIW Diastolic Thickness (2D) 1.0 cm 0.6-0.9 LVID Systole (2D) 2.4 cm 2.2-3.5 LVOT Diameter 1.8 cm LV Mass (2D Cubed) 101.43 g 67.00-162.00 LV Mass Index (2D Cubed) 75 g/m2 43-95 Relative Wall Thickness (2D) 0.50 <=0.42 IVS/LVIW Diastolic Thickness (2D) 0.70 0.00-1.50 LV Fractional Shortening/Ejection Fraction 2D/MM LV Fractional Shortening (2D) 40 % 27-45 LV EF (2D Teichholz) 71 % Atria Name Value Normal LA Dimensions LA Volume (4C A-L) 26 ml LA Volume (BP A-L) 31 ml Left Ventricle Left ventricular chamber dimension is normal. Left ventricular systolic function is normal with visually estimated ejection fraction of 60-65%. There is normal geometry noted in the left ventricle. Left ventricular segmental wall motion is normal. The left ventricular diastolic function is normal. Right Ventricle Right ventricular chamber dimension is normal. Right ventricular systolic function is normal. Left Atrium Left atrial chamber dimension is normal. Right Atrium Right atrial chamber dimension is normal. Aortic Valve The aortic valve is trileaflet. There is no aortic valve sclerosis. There is no aortic valve stenosis with a peak velocity of 157 cm/s, mean gradient of 5 mmHg, and aortic valve area of 2.0 cm2. There is no aortic valve regurgitation. Pulmonic Valve The pulmonic valve is normal. There is no pulmonic valve stenosis. There is trace pulmonic regurgitation. Mitral Valve The mitral valve has normal leaflets. There is no mitral valve stenosis. There is trace mitral valve regurgitation. Tricuspid Valve The tricuspid valve leaflets are normal. There is no tricuspid valve stenosis. There is mild tricuspid valve regurgitation. No pulmonary hypertension, estimated pulmonary arterial systolic pressure is 22 mmHg and systemic blood pressure of 129 mmHg in systole. Pericardium/Pleural The pericardium appears normal. There is no pericardial effusion. No pleural effusion visualized. Inferior Vena Cava Normal inferior vena cava with >50% collapse upon inspiration consistent with normal right atrial pressure, 3 mmHg. Aorta The aortic measurements are indexed to age and body surface area. The aortic root at the sinus of Valsalva is not well visualized. The prox ascending aorta is not well visualized. Summary 1. Left ventricle size is normal and systolic function is normal. Visually estimated ejection fraction is 65%. The diastolic function is normal. 2. Right ventricle size is normal and systolic function is normal. 3. There is trace regurgitation. 4. There is pulmonic valve trace regurgitation. 5. Normal IVC with estimated RA pressure 3 mmHg. Report Signatures Finalized by Vincenzo Corbett on 06/14/2025 01:32 PM
[2025-06-09] MEDS: INSULIN DEGLUDEC 5 UNIT/0.05 ML (PER 5 UNITS) SC (01:45)
[2025-06-09] MEDS: LABETALOL INJ 5 MG/ML VIAL 20 ML 10 MG IVP (01:47)
[2025-06-09] MEDS: RINGERS LACTATED 1000 ML 1,000 ML 999 ML IV (01:49)
[2025-06-09] MEDS: RINGERS LACTATED 1000 ML 1,000 ML 60 ML IV (01:49)
--- NOTE | 2025-06-09 01:56 | PRELIM_ITS ---
CT scan of the abdomen and pelvis without intravenous contrast (axial sections with sagittal and coronal reformats) June 09, 2025 at 0116 hours Clinical History: Complicated UTI. Comparison: No prior study is available for comparison. Findings: No renal/ureteric calculus or ureteral obstruction. Nonspecific perinephric fat stranding is noted bilaterally. There is mild prominence of bilateral renal pelvicalyceal systems and ureters; possibility of pyeloureteritis cannot be excluded. The urinary bladder is distended and demonstrates mild wall t hickening. The gallbladder is surgically absent. There is mild biliary ductal dilatation. The spleen, pancreas and adrenals are unremarkable on this noncontrast study. No evidence of bowel obstruction. The appendix is within normal limits (axial images [id number]). There are small calcifications in the uterus. No evidence of adnexal mass. There is no free fluid or free air. The aorta and its branches demonstrate atheromatous calcification without evidence of aneurysm. The bones are osteopenic. Osseous degenerative changes are noted. There is a 4 mm indeterminate pleural based nodule in the right lower lobe (axial image 28/214). Please note that evaluation of soft tissue/vascular structures and bowel loops is limited due to absence of IV and oral contrast. Impression: 1. Distended urinary bladder with mild apparent wall thickening; possibility of cystitis cannot be excluded. 2. Mild prominence of bilateral renal pelvicalyceal systems and ureters; possibility of pyeloureteritis cannot be excluded. 3. Subtle nonspecific bilateral perinephric fat stranding, which may be due to intravenous infusion versus pyelonephritis. 4. No renal/ureteric calculus or ureteral obstruction. 5. Small indeterminate nodule in the right lower lobe of the lung. 6. Other findings as described above. Suggest correlation with clinical findings, comparison with prior studies and follow up accordingly. Report Electronically Signed By: Mao Luna 06/09/2025 1:55:37 AM [EST]
[2025-06-09 07:34] LABS: Lactate (Lactic Acid) 1.3 mMol/L (0.4-2.0)
[2025-06-09 07:38] LABS: Basophils # (Auto) 0.1 Thou/mm3 (0.0-0.2); Basophils % (Auto) 1 % (0-2.5); Eosinophils # (Auto) 0.1 Thou/mm3 (0.0-0.5); Eosinophils % (Auto) 1 % (0-10); Hematocrit 29.5 % (36.0-46.0); Hemoglobin 9.6 g/dL (12.0-16.0); Immature Granulocytes Auto 0.05 Thou/mm3 (0.00-0.00); Lymphocytes # (Auto) 1.9 Thou/mm3 (1.0-4.8); Lymphocytes % (Auto) 19 % (10-50); Mean Corpuscular HGB Conc 32.5 g/dl (31.0-37.0); Mean Corpuscular Hemoglobin 27.4 pg (25.0-35.0); Mean Corpuscular Volume 84 fL (80-100); Monocytes # (Auto) 0.8 Thou/mm3 (0.0-0.8); Monocytes % (Auto) 8 % (0-12); Neutrophils # (Auto) 7.1 Thou/mm3 (1.8-7.7); Neutrophils % (Auto) 71 % (37-80); Nucleated Red Blood Cell # 0.00 Thou/mm3 (0.00-0.00); Nucleated Red Blood Cell % 0 /100 WBC (0); Platelet Count 447 Thou/mm3 (140-440); RDW Standard Deviation 40.0 fL (36.4-46.3); Red Blood Count 3.50 Miln/mm3 (4.00-5.20); White Blood Count 10.0 Thou/mm3 (3.6-11.0)
[2025-06-09 08:07] LABS: Glucose Estimated Average 312 mg/dL (80-131); Hemoglobin A1C 12.5 % Hgb (4.8-6.0)
[2025-06-09 08:12] LABS: Alanine Aminotransferase 10 U/L (10-49); Albumin, Serum 3.4 gm/dL (3.4-4.8); Albumin/Globulin Ratio 1.1 (1.2-2.2); Alkaline Phosphatase 101 U/L (46-116); Anion Gap 8 (7-16); Aspartate Amino Transferase 17 U/L (0-34); BUN/Creatinine Ratio 10 Ratio (12-20); Bilirubin,Total 0.3 mg/dL (0.3-1.2); Blood Urea Nitrogen 10 mg/dL (9-23); Calcium 8.5 mg/dL (8.3-10.6); Calcium (Corrected) 9.0 mg/dL (8.5-10.1); Carbon Dioxide 25.6 mMol/L (20.0-31.0); Cardiac Risk Estimate 3.4 RATIO (3.7-5.6); Chloride 100 mMol/L (98-107); Cholesterol 96 mg/dL (132-200); Creatinine (Component) 1.0 mg/dL (0.6-1.3); Estimated Creatinine Clearance 31.0 mL/min (>60); Globulin 3.0 gm/dL (2.3-3.5); Glucose 364 mg/dL (74-106); HDL Cholesterol 28 mg/dL (40-60); LDL Cholesterol,Calculated 48 mg/dL (0-130); Magnesium 1.7 mg/dL (1.6-2.6); Osmolality,Calculated 282 (275-295); Potassium 4.4 mMol/L (3.4-5.1); Sodium 134 mMol/L (136-145); Thyroid Stimulating Hormone 2.31 uIU/mL (0.55-4.78); Total Protein 6.4 gm/dL (5.7-8.2); Triglycerides 99 mg/dL (30-150); eGFR 60 See Note
[2025-06-09] MEDS: INSULIN LISPRO (AdmeLOG) 1 UNIT/0.01 ML UNIT SC ×3 (08:13→17:49)
[2025-06-09] MEDS: HEPARIN SOD INJ 5000 UNIT/ML VIAL SC ×2 (10:18→20:33)
[2025-06-09] MEDS: PANTOPRAZOLE 40 MG TABLET PO (10:18)
[2025-06-09] MEDS: INSULIN DEGLUDEC 5 UNIT/0.05 ML (PER 5 UNITS) 10 UNIT SC (10:18)
--- NOTE | 2025-06-09 12:02 | PC.NURSE ---
bladder scanned post void 78ml
[2025-06-09] MEDS: cefTRIAXone/D5w 1gm IV premix 1 GM/50 ML BAG IV (12:33)
--- NOTE | 2025-06-09 12:56 | ESPR_ITS ---
<Statement entered by Baudilio Vines MD - 06/09/25 13:36> I have reviewed the note and agree with the resident's assessment & plan with exceptions as below. I have personally reviewed labs, imaging, home meds/prior records, examined the patient, formulated and discussed management plan with my attending Patient was seen and examined at bedside this morning. No acute overnight events. Patient was admitted overnight due to pyelonephritis. Patient this morning has not spiked any fevers, WBCs have not spiked and otherwise labs look pretty benign. Started the patient on degludec 10 for better control of her blood sugars. Also start ceftriaxone 2 g for pyelonephritis. Patient was also noted to have distended bladder in the abdomen/pelvis CT, but patient voided this morning and was refusing Arrington catheter. Will wait for urine and blood cultures. Baudilio Vines PGY2 Disclaimer: Even though this this note was dictated by speech recognition and even though it was carefully revised there may still be minor errors in extruding press adjuster due to voice recognition software. Documentation for date of: 06/09/25 Subjective Subjective Interval history: Patient was seen and examined at bedside today; no acute overnight events. WBC count is 10 on 06/09/25; vitally stable without fevers. CT A/P showed significant bladder distention, but patient voided this morning. She refused Arrington, so will bladder scan qshift and straight cath if needed. Exam Vital Signs Temp Pulse Resp BP Pulse Ox O2 Del Method 98.1 F 90 16 131/74 H 98 Room Air 06/09/25 11:38 06/09/25 12:00 06/09/25 11:38 06/09/25 11:38 06/09/25 11:38 06/09/25 11:38 Narrative Exam General: A/O x3, no acute distress, well-nourished, well-developed Eyes: PERRL, EOMI. Anicteric, vision grossly intact. Ears: No ear pain, no ear discharge, Hearing grossly intact. Nose: No nasal discharge. Mouth/Throat: Moist mucous membranes, no redness, no lesions. Neck: Neck supple, non-tender, no cervical lymphadenopathy. Lungs: Clear NOREEN to auscultation and percussion, No accessory muscle use. Cardio: Normal S1/S2, regular rhythm, no murmurs, no JVD or carotid bruits. Abdomen: Soft, no palpable masses, peristalsis present, no guarding or rebound; suprapubic tenderness Extremities: Symmetrical, no significant deformities, no peripheral edema , non-tender, peripheral pulses present. Skin: No rashes, no lesions, warm to touch. Neuro: No focal neurological deficits. Psych: Cooperative, appropriate mood and effect. Objective Labs 06/10/25 05:04 06/10/25 05:04 Labs: Laboratory Results - last 24 hr 06/08/25 06/08/25 06/09/25 19:10 19:12 07:05 WBC 9.5 10.0 RBC 3.89 L 3.50 L Hgb 10.9 L 9.6 L Hct 32.7 L 29.5 L MCV 84 84 MCH 28.0 27.4 MCHC 33.3 32.5 RDW Std Deviation 40.2 40.0 Plt Count 449 H D 447 H Neut % (Auto) 70 71 Lymph % (Auto) 18 19 [place] % (Auto) 10 8 Eos % (Auto) 1 1 Baso % (Auto) 1 1 Neut # (Auto) 6.6 7.1 Lymph # (Auto) 1.7 1.9 [place] # (Auto) 0.9 H 0.8 Eos # (Auto) 0.1 0.1 Baso # (Auto) 0.1 0.1 Immature Gran # (Auto) 0.06 H 0.05 H Absolute Nucleated RBC 0.00 0.00 Immature Gran % 1 H 1 H Nucleated RBC % 0 0 Sodium 127 L 134 L Potassium 5.3 H 4.4 D Chloride 93 L 100 Carbon Dioxide 27.5 25.6 Anion Gap 7 8 BUN 13 10 Creatinine 1.1 1.0 Estim Creat Clear Calc 28.2 L 31.0 L eGFR 53 L 60 BUN/Creatinine Ratio 12 10 L Glucose 421 H* [address] Glu mg/dL 312 H Hemoglobin A1c 12.5 H Calculated Osmolality 273 L 282 Lactic Acid 1.2 1.3 Calcium 9.4 8.5 Corrected Calcium 9.4 9.0 Magnesium 1.7 Total Bilirubin 0.4 0.3 AST 16 17 ALT 13 10 Alkaline Phosphatase 117 H 101 Troponin I < 0.002 Total Protein 8.3 H 6.4 Albumin 4.1 3.4 D Globulin 4.2 H 3.0 Albumin/Globulin Ratio 1.0 L 1.1 L Triglycerides 99 Cholesterol 96 L LDL Cholesterol, Calc 48 HDL Cholesterol 28 L Cholesterol/HDL Ratio 3.4 L Procalcitonin 0.06 TSH 2.31 Ur Collection Type Clean Catch Urine Color Yellow Urine Clarity Turbid A Urine pH 6.0 Ur Specific [place] 1.016 Urine Protein 1+ A Urine Glucose (UA) 4+ A Urine Ketones Negative Urine Blood 1+ A Urine Nitrite Negative Urine Bilirubin Negative Urine Urobilinogen (Auto) Negative Ur Leukocyte Esterase Positive Urine RBC 9 H Urine WBC 821 H Ur Squamous Epith Cells 6 H Urine Bacteria 2+ A Quality Measures Quality Measures none Advance care planning discussed with:: other Assessment & Plan Assessment Current Active Medications: Generic Name Dose Route Start Last Admin Trade Name Freq PRN Reason Stop Dose Admin Acetaminophen 650 mg 06/09/25 01:20 Acetaminophen 325 Mg Tablet PO 07/09/25 01:19 Q6H PRN Fever >101.5 Acetaminophen 650 mg 06/09/25 01:20 Acetaminophen 325 Mg Tablet PO 07/09/25 01:19 Q6H PRN PAIN SCALE 1-3 (mild Dextrose 25 ml 06/09/25 01:25 Dextrose 50%-Water Inj 50 Ml Syringe IV 07/09/25 01:24 Q15MIN PRN BG 50-70 responsive npo pt Dextrose 50 ml 06/09/25 01:25 Dextrose 50%-Water Inj 50 Ml Syringe IV 07/09/25 01:24 Q15MIN PRN BG <50 OR BG <70 & pt unresponsive Estrogens Conjugated 0 gm 06/09/25 12:15 Estrogens,Conj Vag Cr 30 Gm Tube VAGINAL 07/09/25 12:14 QDAY PENELOPE Glucagon 1 mg 06/09/25 01:25 Glucagon Inj 1 Mg Vial IM Q15MIN PRN BG <70, and no IV access Heparin Sodium (Porcine) 5,000 unit 06/09/25 09:00 06/09/25 10:18 Heparin Sod Inj 5000 Unit/Ml Vial SC 06/23/25 08:59 5,000 unit BID PENELOPE Administration Lactated Ringer's 1,000 mls @ 60 mls/hr 06/09/25 01:24 06/09/25 01:49 Lactated Ringers IV 06/09/25 18:03 60 mls/hr .[id number] PENELOPE Administration Ceftriaxone Sodium 2 gm/ 50 mls @ 100 mls/hr 06/10/25 09:00 Sodium Chloride IV 06/17/25 08:59 QDAY PENELOPE Insulin Degludec 10 unit 06/09/25 09:00 06/09/25 10:18 Insulin Degludec 5 Unit/0.05 Ml (Per 5 Units) SC 07/09/25 08:59 10 unit QDAY PENELOPE Administration Insulin Human Lispro 0 unit 06/09/25 07:30 06/09/25 12:06 Insulin Lispro (Admelog) 1 Unit/0.01 Ml Unit SC 07/09/25 07:29 3 unit AC PENELOPE Administration Protocol Morphine Sulfate 2 mg 06/09/25 01:20 Morphine Sulf Inj 4 Mg/Ml Vial IVP 06/14/25 01:19 Q4HR PRN Pain Scale 4-10 (Severe Ondansetron HCl 4 mg 06/09/25 01:20 Ondansetron Inj 2 Mg/Ml Inj 2 Ml IVP 07/09/25 01:19 Q6H PRN NAUSEA OR VOMITING Protocol Pantoprazole Sodium 40 mg 06/09/25 09:00 06/09/25 10:18 Pantoprazole 40 Mg Tablet PO 07/09/25 08:59 40 mg QDAY PENELOPE Administration Sennosides 1 tab 06/09/25 01:20 Senna Tablet PO 07/09/25 01:19 QDAY PRN constipation Protocol Plan Patient is a 70 year old female with PMH of Hypertension, DM presented to the ED on 06/08/25 burning micturition and abdominal pain. She was admitted on 06/09/25 for complicated UTI. # Acute pyelonephritis # Urinary retention Endorsed burning sensation, urinary urgency for 2 months on admission; on admission, had suprapubic and left flank tenderness Diagnosed with UTI on 05/20/25 and discharged with cefdinir but did not complete course UA on admission- leukocyte esterase positive, urine WBC 821, urine bacteria 2+. CT A/P on admission- mild prominence of bilateral renal pelvic calyceal system and ureter and bilateral perinephric fat stranding but no renal calculi or obstruction. Significant bladder distention seen. CXR negative for pathology Urine culture from 05/18/25 grew E. coli sensitive to ceftriaxone. Plan: Ceftriaxone 1g IV given x1; started on ceftriaxone 2g daily 1 L of LR given and started on 60 cc/h LR Morphine 2 g q4h for pain management Patient refuses Arrington catheter despite education, so bladder scan qshift and consider straight cath if retained > 400mL Urine cultures ordered, pending # Staph aureus bacteremia Blood cultures from the 05/18/25 visit grew staph aureus in 2 out of 2 bottles. Plan: ?Follow-up blood cultures from today's visit; will need 14 days of IV antibotics from date of last negative cutlures ?Ordered echo with Doppler to rule out vegetations in the heart valves due to current gram-positive bacteremia. # GERD Endorses burning chest pain when she does not eat food for long time, regurgitation of acid. Plan: ?Starting on pantoprazole 40 mg p.o. # T2DM Admission blood glucose 421 with a history of diabetes but does not take any medications at home. Repeat blood glucose 336, gave 5 units of insulin Degludec Plan: ?Insulin degludec 10 with sliding scale # Normocytic anemia # Borderline Hyperkalemia # Hypertension Admission Hgb 10.9, K 5.3 (5 units insulin given), BP 143/76, but increased to 194/85 overnight. Plan: labetalol 10 mg given and started on IV fluids for BP ?Monitor CBC, CMP, vitals Disposition: med tele DVT prophylaxis: heparin 5000 subcu BID GI prophylaxis: protonix 40 Diet: Low sodium 2g Lines: PIV CODE STATUS: Full code This case was discussed with my attending physician, Dr. Hernandez, and senior resident, Dr. Mcfarland. Juan Dockery MD-PhD, PGY1 Attending Provider Attestation/Addendum Corey, Dominique Hernandez, DO, attest that I was physically present for the montero portions of the service and evaluated the patient with the resident and I reviewed and discussed the case with the resident and agree with the resident's findings and plans of care as documented above Patient seen and evaluated same. She states that she continues to have some mild abdominal pain. CT abdomen and pelvis was reviewed and reveals very distended bladder. Arrington catheter was ordered, but patient refused. She was able to void a significant amount after some time. Patient does strain at times. Bladder scan revealed less than 78 mL of residual urine. Patient states that she has difficulty voiding at times. She feels a lot of burning pain on urination which has prevented her from going to the bathroom frequently. She states it feels as though she had eaten a lot of chilis. She was recently given antibiotics but lost the bottle after taking 4 days of p.o. antibiotics. Pelvic exam was done showing no erythema, edema or signs of infection or irritation. No open wounds or drainage was noted. Patient may benefit from topical estrogen due to frequent UTIs. Will await urine cultures at this time. She had a recent blood culture that showed 1 out of 2 bottles positive for MSSA. Sensitive to Rocephin. Will continue with Rocephin IV 2 g daily.
[2025-06-09] MEDS: Magnesium Sulfate 2 GM Ivpb 2 GM/50 ML BAG IV (13:10)
[2025-06-09] MEDS: ESTROGENS,CONJ VAG CR 30 GM TUBE VAGINAL (17:40)
[2025-06-10] VITALS (9 sets, daily range): BP systolic 124–160; BP diastolic 70–88; PULSE 79–93; RESP 16–20; TEMP 36.1–36.8; O2SAT 96–99; BMI 21.1
[2025-06-10 06:03] LABS: Basophils # (Auto) 0.1 Thou/mm3 (0.0-0.2); Basophils % (Auto) 1 % (0-2.5); Eosinophils # (Auto) 0.1 Thou/mm3 (0.0-0.5); Eosinophils % (Auto) 2 % (0-10); Hematocrit 31.4 % (36.0-46.0); Hemoglobin 10.5 g/dL (12.0-16.0); Immature Granulocytes Auto 0.04 Thou/mm3 (0.00-0.00); Lymphocytes # (Auto) 1.9 Thou/mm3 (1.0-4.8); Lymphocytes % (Auto) 23 % (10-50); Mean Corpuscular HGB Conc 33.4 g/dl (31.0-37.0); Mean Corpuscular Hemoglobin 28.2 pg (25.0-35.0); Mean Corpuscular Volume 84 fL (80-100); Monocytes # (Auto) 0.9 Thou/mm3 (0.0-0.8); Monocytes % (Auto) 11 % (0-12); Neutrophils # (Auto) 5.1 Thou/mm3 (1.8-7.7); Neutrophils % (Auto) 63 % (37-80); Nucleated Red Blood Cell # 0.00 Thou/mm3 (0.00-0.00); Nucleated Red Blood Cell % 0 /100 WBC (0); Platelet Count 427 Thou/mm3 (140-440); RDW Standard Deviation 41.3 fL (36.4-46.3); Red Blood Count 3.72 Miln/mm3 (4.00-5.20); White Blood Count 8.1 Thou/mm3 (3.6-11.0)
[2025-06-10 06:13] LABS: INR 1.0 (0.9-1.3); Prothrombin Time 10.8 Seconds (9.0-12.2)
[2025-06-10 06:43] LABS: Alanine Aminotransferase 10 U/L (10-49); Albumin, Serum 3.4 gm/dL (3.4-4.8); Albumin/Globulin Ratio 1.0 (1.2-2.2); Alkaline Phosphatase 98 U/L (46-116); Anion Gap 10 (7-16); Aspartate Amino Transferase 16 U/L (0-34); BUN/Creatinine Ratio 6 Ratio (12-20); Bilirubin,Total 0.2 mg/dL (0.3-1.2); Blood Urea Nitrogen 6 mg/dL (9-23); Calcium 8.6 mg/dL (8.3-10.6); Calcium (Corrected) 9.1 mg/dL (8.5-10.1); Carbon Dioxide 26.4 mMol/L (20.0-31.0); Chloride 101 mMol/L (98-107); Creatinine (Component) 1.0 mg/dL (0.6-1.3); Estimated Creatinine Clearance 31.0 mL/min (>60); Globulin 3.4 gm/dL (2.3-3.5); Glucose 252 mg/dL (74-106); Magnesium 2.1 mg/dL (1.6-2.6); Osmolality,Calculated 280 (275-295); Phosphorous 3.5 mg/dL (2.4-5.1); Potassium 4.1 mMol/L (3.4-5.1); Sodium 137 mMol/L (136-145); Total Protein 6.8 gm/dL (5.7-8.2); eGFR 60 See Note
[2025-06-10] MEDS: INSULIN LISPRO (AdmeLOG) 1 UNIT/0.01 ML UNIT SC ×3 (07:42→17:11)
[2025-06-10] MEDS: PANTOPRAZOLE 40 MG TABLET PO (09:39)
[2025-06-10] MEDS: HEPARIN SOD INJ 5000 UNIT/ML VIAL SC ×2 (09:39→21:20)
[2025-06-10] MEDS: ESTROGENS,CONJ VAG CR 30 GM TUBE VAGINAL (09:39)
[2025-06-10] MEDS: cefTRIAXone 2 GM in SODIUM CHLORIDE 0.9% (Popper) 50 ML IV (09:39)
[2025-06-10] MEDS: INSULIN DEGLUDEC 5 UNIT/0.05 ML (PER 5 UNITS) 12 UNIT SC ×2 (09:45→09:50)
--- NOTE | 2025-06-10 14:31 | PC.SS ---
Sara Vaughan is a 70-year-old female admitted to Med Surg for Pyelonephrisitis. SS conducted bedside contact with the patient to complete initial assessment and to discuss discharge planning. Role and reason explained. Patient confirmed demographic information. Patient identifies son Smith Urias [phone] as her surrogate decision maker. Pt states she is able to complete all ADL?s independently. No need for any source of DME. Pts PCP [facility] Dr[facility] Velasquez but [facility] to establish a new PCP unsure of name, Appt is for 06.22.25. Pharmacy of choice is [facility]. Discharge options discussed and the pt wishes to return home.? Family will provide transportation upon DC. No further intervention required at this time, social work therapist would be available to address any further concerns. DC Plan: Home Contact: Smith Crane Address: Confirmed on face sheet PCP: KARAN Bentley
--- NOTE | 2025-06-10 15:20 | ESPR_ITS ---
<Statement entered by Baudilio Vines MD - 06/10/25 15:38> I have reviewed the note and agree with the resident's assessment & plan with exceptions as below. I have personally reviewed labs, imaging, home meds/prior records, examined the patient, formulated and discussed management plan with my attending Patient was seen and examined at bedside morning. No acute overnight events. States her burning and her suprapubic pain is better. Patient grew E. coli in the urine culture which was sensitive to ceftriaxone. Still pending blood cultures for a total of 48 hours prior to discharge and also started patient on bethanechol for urinary retention. Baudilio Vines PGY2 Disclaimer: Even though this this note was dictated by speech recognition and even though it was carefully revised there may still be minor errors in poultry dresser due to voice recognition software. Documentation for date of: 06/10/25 Subjective Subjective Interval history: Patient seen and examined at bedside; no acute events overnight. Still having suprapubic pain, but less so. Urine culture positive for E coli sensitive to ceftriaxone which she is already taking. Exam Vital Signs Temp Pulse Resp BP Pulse Ox O2 Del Method 97.5 F 87 16 146/77 H 99 Room Air 06/10/25 11:49 06/10/25 11:49 06/10/25 11:49 06/10/25 11:49 06/10/25 11:49 06/10/25 11:49 Narrative Exam General: A/O x3, no acute distress, well-nourished, well-developed Eyes: PERRL, EOMI. Anicteric, vision grossly intact. Ears: No ear pain, no ear discharge, Hearing grossly intact. Nose: No nasal discharge. Mouth/Throat: Moist mucous membranes, no redness, no lesions. Neck: Neck supple, non-tender, no cervical lymphadenopathy. Lungs: Clear NOREEN to auscultation and percussion, No accessory muscle use. Cardio: Normal S1/S2, regular rhythm, no murmurs, no JVD or carotid bruits. Abdomen: Soft, no palpable masses, peristalsis present, no guarding or rebound; suprapubic tenderness improved from yesterday Extremities: Symmetrical, no significant deformities, no peripheral edema , non-tender, peripheral pulses present. Skin: No rashes, no lesions, warm to touch. Neuro: No focal neurological deficits. Psych: Cooperative, appropriate mood and effect. Objective Labs 06/11/25 05:30 06/11/25 05:30 Labs: Laboratory Results - last 24 hr 06/10/25 05:04 WBC 8.1 RBC 3.72 L Hgb 10.5 L Hct 31.4 L MCV 84 MCH 28.2 MCHC 33.4 RDW Std Deviation 41.3 Plt Count 427 Neut % (Auto) 63 Lymph % (Auto) 23 [place] % (Auto) 11 Eos % (Auto) 2 Baso % (Auto) 1 Neut # (Auto) 5.1 Lymph # (Auto) 1.9 [place] # (Auto) 0.9 H Eos # (Auto) 0.1 Baso # (Auto) 0.1 Immature Gran # (Auto) 0.04 H Absolute Nucleated RBC 0.00 Immature Gran % 1 H Nucleated RBC % 0 PT 10.8 INR 1.0 Sodium 137 Potassium 4.1 Chloride 101 Carbon Dioxide 26.4 Anion Gap 10 BUN 6 L Creatinine 1.0 Estim Creat Clear Calc 31.0 L eGFR 60 BUN/Creatinine Ratio 6 L Glucose 252 H D Calculated Osmolality 280 Calcium 8.6 Corrected Calcium 9.1 Phosphorus 3.5 Magnesium 2.1 Total Bilirubin 0.2 L AST 16 ALT 10 Alkaline Phosphatase 98 Total Protein 6.8 Albumin 3.4 Globulin 3.4 Albumin/Globulin Ratio 1.0 L Quality Measures Quality Measures none Advance care planning discussed with:: other Assessment & Plan Assessment Current Active Medications: Generic Name Dose Route Start Last Admin Trade Name Aldoq PRN Reason Stop Dose Admin Acetaminophen 650 mg 06/09/25 01:20 Acetaminophen 325 Mg Tablet PO 07/09/25 01:19 Q6H PRN Fever >101.5 Acetaminophen 650 mg 06/09/25 01:20 Acetaminophen 325 Mg Tablet PO 07/09/25 01:19 Q6H PRN PAIN SCALE 1-3 (mild Bethanechol Chloride 10 mg 06/10/25 14:00 Bethanechol Chloride 10 Mg Tablet PO 07/10/25 13:59 TID PENELOPE Dextrose 25 ml 06/09/25 01:25 Dextrose 50%-Water Inj 50 Ml Syringe IV 07/09/25 01:24 Q15MIN PRN BG 50-70 responsive npo pt Dextrose 50 ml 06/09/25 01:25 Dextrose 50%-Water Inj 50 Ml Syringe IV 07/09/25 01:24 Q15MIN PRN BG <50 OR BG <70 & pt unresponsive Estrogens Conjugated 0 gm 06/09/25 12:15 06/10/25 09:39 Estrogens,Conj Vag Cr 30 Gm Tube VAGINAL 07/09/25 12:14 1 appl QDAY PENELOPE Administration Glucagon 1 mg 06/09/25 01:25 Glucagon Inj 1 Mg Vial IM Q15MIN PRN BG <70, and no IV access Heparin Sodium (Porcine) 5,000 unit 06/09/25 09:00 06/10/25 09:39 Heparin Sod Inj 5000 Unit/Ml Vial SC 06/23/25 08:59 5,000 unit BID PENELOPE Administration Ceftriaxone Sodium 2 gm/ 50 mls @ 100 mls/hr 06/10/25 09:00 06/10/25 09:39 Sodium Chloride IV 06/17/25 08:59 100 mls/hr QDAY PENELOPE Administration Insulin Degludec 12 unit 06/10/25 09:00 06/10/25 09:50 Insulin Degludec 5 Unit/0.05 Ml (Per 5 Units) SC 07/10/25 08:59 12 unit QDAY PENELOPE Administration Insulin Human Lispro 0 unit 06/09/25 07:30 06/10/25 11:44 Insulin Lispro (Admelog) 1 Unit/0.01 Ml Unit SC 07/09/25 07:29 1 unit AC PENELOPE Administration Protocol Morphine Sulfate 2 mg 06/09/25 01:20 Morphine Sulf Inj 4 Mg/Ml Vial IVP 06/14/25 01:19 Q4HR PRN Pain Scale 4-10 (Severe Ondansetron HCl 4 mg 06/09/25 01:20 Ondansetron Inj 2 Mg/Ml Inj 2 Ml IVP 07/09/25 01:19 Q6H PRN NAUSEA OR VOMITING Protocol Pantoprazole Sodium 40 mg 06/09/25 09:00 06/10/25 09:39 Pantoprazole 40 Mg Tablet PO 07/09/25 08:59 40 mg QDAY PENELOPE Administration Sennosides 1 tab 06/09/25 01:20 Senna Tablet PO 07/09/25 01:19 QDAY PRN constipation Protocol Plan Patient is a 70 year old female with PMH of Hypertension, DM presented to the ED on 06/08/25 burning micturition and abdominal pain. She was admitted on 06/09/25 for complicated UTI. # Acute pyelonephritis # Urinary retention Endorsed burning sensation, urinary urgency for 2 months on admission; on admission, had suprapubic and left flank tenderness Diagnosed with UTI on 05/20/25 and discharged with cefdinir but did not complete course UA on admission- leukocyte esterase positive, urine WBC 821, urine bacteria 2+. CT A/P on admission- mild prominence of bilateral renal pelvic calyceal system and ureter and bilateral perinephric fat stranding but no renal calculi or obstruction. Significant bladder distention seen. CXR negative for pathology Urine culture from 05/18/25 grew E. coli sensitive to ceftriaxone. Urine culture from 06/08/25 grew E. coli sensitive to ceftriaxone. Plan: Continue ceftriaxone 2g daily 1 L of LR given and started on 60 cc/h LR Morphine 2 g q4h for pain management Bethanechol 10 added due to urinary retention Vaginal estrogen # Staph aureus bacteremia Blood cultures from the 05/18/25 visit grew staph aureus in 2 out of 2 bottles. Blood cultures negative after 24 hours. Plan: ?Follow-up blood cultures from today's visit; will need 14 days of IV antibotics from date of last negative cutlures ?Ordered echo with Doppler to rule out vegetations in the heart valves due to current gram-positive bacteremia. # GERD Endorses burning chest pain when she does not eat food for long time, regurgitation of acid. Plan: ?Starting on pantoprazole 40 mg p.o. # T2DM Admission blood glucose 421 with a history of diabetes but does not take any medications at home. Repeat blood glucose 336, gave 5 units of insulin Degludec. Glucose 06/10/25 was 252. Plan: ?Insulin degludec 12 with sliding scale # Normocytic anemia # Borderline Hyperkalemia # Hypertension Admission Hgb 10.9, K 5.3 (5 units insulin given), BP 143/76, but increased to 194/85 overnight. 06/10/25- BP 144/70 Plan: Monitor CBC, CMP, vitals Disposition: med tele DVT prophylaxis: heparin 5000 subcu BID GI prophylaxis: protonix 40 Diet: Low sodium 2g Lines: PIV CODE STATUS: Full code This case was discussed with my attending physician, Dr. Hernandez, and senior resident, Dr. Mcfarland. Juan Dockery MD-PhD, PGY1 Attending Provider Attestation/Addendum I, Dominique Hernandez DO, attest that I was physically present for the montero portions of the service and evaluated the patient with the resident and I reviewed and discussed the case with the resident and agree with the resident's findings and plans of care as documented above Patient seen and evaluated this AM. She continues to have urinary retention with occasional abdominal pain. A1c is noted be 12.5, will uptitrate long- acting insulin in addition to insulin sliding scale. Patient does not want Arrington catheter. Will start on bethanechol due to urinary retention. Urine cultures positive for E. coli that is pansensitive. Previous blood cultures had been positive for MSSA on 05/18, will follow-up with repeat final blood cultures. Sent patient otherwise appears well and denies any fevers or chills. She is ambulating without issue. Anticipate discharge in the next 24 hours if patient condition continues to improve.
[2025-06-10] MEDS: BETHANECHOL CHLORIDE 10 MG TABLET PO (15:42)
--- NOTE | 2025-06-10 16:04 | PC.DIETICIAN ---
Nutrition Education (A1C=12.5): Patient was educated on dietary management of diabetes; written material was provided for future reference. *Consider prescribing a [employer] Miladys 3 Plus sensor + Lyle prior to discharge.
[2025-06-11] VITALS: BP 170/91; PULSE 86; RESP 17; TEMP 36.4; O2SAT 99
[2025-06-11 04:00] VITALS: BP 167/86; PULSE 90; RESP 16; TEMP 36.8; O2SAT 99
[2025-06-11 04:20] VITALS: PULSE 86
[2025-06-11 06:10] LABS: Basophils # (Auto) 0.1 Thou/mm3 (0.0-0.2); Basophils % (Auto) 1 % (0-2.5); Eosinophils # (Auto) 0.1 Thou/mm3 (0.0-0.5); Eosinophils % (Auto) 1 % (0-10); Hematocrit 32.6 % (36.0-46.0); Hemoglobin 10.5 g/dL (12.0-16.0); Immature Granulocytes Auto 0.03 Thou/mm3 (0.00-0.00); Lymphocytes # (Auto) 2.3 Thou/mm3 (1.0-4.8); Lymphocytes % (Auto) 28 % (10-50); Mean Corpuscular HGB Conc 32.2 g/dl (31.0-37.0); Mean Corpuscular Hemoglobin 27.9 pg (25.0-35.0); Mean Corpuscular Volume 87 fL (80-100); Monocytes # (Auto) 1.0 Thou/mm3 (0.0-0.8); Monocytes % (Auto) 12 % (0-12); Neutrophils # (Auto) 4.8 Thou/mm3 (1.8-7.7); Neutrophils % (Auto) 57 % (37-80); Nucleated Red Blood Cell # 0.00 Thou/mm3 (0.00-0.00); Nucleated Red Blood Cell % 0 /100 WBC (0); Platelet Count 491 Thou/mm3 (140-440); RDW Standard Deviation 41.9 fL (36.4-46.3); Red Blood Count 3.77 Miln/mm3 (4.00-5.20); White Blood Count 8.4 Thou/mm3 (3.6-11.0)
[2025-06-11] MEDS: BETHANECHOL CHLORIDE 10 MG TABLET PO (06:15)
[2025-06-11 06:29] LABS: Alanine Aminotransferase 12 U/L (10-49); Albumin, Serum 3.8 gm/dL (3.4-4.8); Albumin/Globulin Ratio 1.0 (1.2-2.2); Alkaline Phosphatase 99 U/L (46-116); Anion Gap 7 (7-16); Aspartate Amino Transferase 19 U/L (0-34); BUN/Creatinine Ratio 10 Ratio (12-20); Bilirubin,Total 0.2 mg/dL (0.3-1.2); Blood Urea Nitrogen 9 mg/dL (9-23); Calcium 9.4 mg/dL (8.3-10.6); Calcium (Corrected) 9.6 mg/dL (8.5-10.1); Carbon Dioxide 29.8 mMol/L (20.0-31.0); Chloride 101 mMol/L (98-107); Creatinine (Component) 0.9 mg/dL (0.6-1.3); Estimated Creatinine Clearance 34.4 mL/min (>60); Globulin 3.9 gm/dL (2.3-3.5); Glucose 143 mg/dL (74-106); Magnesium 2.1 mg/dL (1.6-2.6); Osmolality,Calculated 276 (275-295); Phosphorous 4.3 mg/dL (2.4-5.1); Potassium 3.9 mMol/L (3.4-5.1); Sodium 138 mMol/L (136-145); Total Protein 7.7 gm/dL (5.7-8.2); eGFR > 60 See Note
[2025-06-11 07:44] VITALS: BP 140/73; PULSE 76; RESP 18; TEMP 37.1; O2SAT 96
[2025-06-11 08:00] VITALS: PULSE 86
[2025-06-11] MEDS: PANTOPRAZOLE 40 MG TABLET PO (09:15)
[2025-06-11] MEDS: ESTROGENS,CONJ VAG CR 30 GM TUBE VAGINAL (09:15)
[2025-06-11] MEDS: HEPARIN SOD INJ 5000 UNIT/ML VIAL SC (09:16)
[2025-06-11] MEDS: INSULIN DEGLUDEC 5 UNIT/0.05 ML (PER 5 UNITS) 12 UNIT SC (09:22)
--- NOTE | 2025-06-11 09:33 | PD.RESPRO ---
Documentation for date of: 06/11/25 Exam Vital Signs Temp Pulse Resp BP Pulse Ox O2 Del Method 98.3 F 86 16 167/86 H 99 Room Air 06/11/25 04:00 06/11/25 04:20 06/11/25 04:00 06/11/25 04:00 06/11/25 04:00 06/11/25 04:00 Objective Labs 06/11/25 05:30 06/11/25 05:30 Labs: Laboratory Results - last 24 hr 06/11/25 05:30 WBC 8.4 RBC 3.77 L Hgb 10.5 L Hct 32.6 L MCV 87 MCH 27.9 MCHC 32.2 RDW Std Deviation 41.9 Plt Count 491 H D Neut % (Auto) 57 Lymph % (Auto) 28 Brown % (Auto) 12 Eos % (Auto) 1 Baso % (Auto) 1 Neut # (Auto) 4.8 Lymph # (Auto) 2.3 Brown # (Auto) 1.0 H Eos # (Auto) 0.1 Baso # (Auto) 0.1 Immature Gran # (Auto) 0.03 H Absolute Nucleated RBC 0.00 Immature Gran % 0 Nucleated RBC % 0 Sodium 138 Potassium 3.9 Chloride 101 Carbon Dioxide 29.8 Anion Gap 7 BUN 9 Creatinine 0.9 Estim Creat Clear Calc 34.4 L eGFR > 60 BUN/Creatinine Ratio 10 L Glucose 143 H D Calculated Osmolality 276 Calcium 9.4 Corrected Calcium 9.6 Phosphorus 4.3 Magnesium 2.1 Total Bilirubin 0.2 L AST 19 ALT 12 Alkaline Phosphatase 99 Total Protein 7.7 Albumin 3.8 Globulin 3.9 H Albumin/Globulin Ratio 1.0 L Quality Measures Quality Measures none Assessment & Plan Assessment Current Active Medications: Generic Name Dose Route Start Last Admin Trade Name Freq PRN Reason Stop Dose Admin Acetaminophen 650 mg 06/09/25 01:20 Acetaminophen 325 Mg Tablet PO 07/09/25 01:19 Q6H PRN Fever >101.5 Acetaminophen 650 mg 06/09/25 01:20 Acetaminophen 325 Mg Tablet PO 07/09/25 01:19 Q6H PRN PAIN SCALE 1-3 (mild Bethanechol Chloride 10 mg 06/10/25 14:00 06/11/25 06:15 Bethanechol Chloride 10 Mg Tablet PO 07/10/25 13:59 10 mg TID PENELOPE Administration Dextrose 25 ml 06/09/25 01:25 Dextrose 50%-Water Inj 50 Ml Syringe IV 07/09/25 01:24 Q15MIN PRN BG 50-70 responsive npo pt Dextrose 50 ml 06/09/25 01:25 Dextrose 50%-Water Inj 50 Ml Syringe IV 07/09/25 01:24 Q15MIN PRN BG <50 OR BG <70 & pt unresponsive Estrogens Conjugated 0 gm 06/09/25 12:15 06/11/25 09:15 Estrogens,Conj Vag Cr 30 Gm Tube VAGINAL 07/09/25 12:14 1 appl QDAY PENELOPE Administration Glucagon 1 mg 06/09/25 01:25 Glucagon Inj 1 Mg Vial IM Q15MIN PRN BG <70, and no IV access Heparin Sodium (Porcine) 5,000 unit 06/09/25 09:00 06/11/25 09:16 Heparin Sod Inj 5000 Unit/Ml Vial SC 06/23/25 08:59 5,000 unit BID PENELOPE Administration Ceftriaxone Sodium 2 gm/ 50 mls @ 100 mls/hr 06/10/25 09:00 06/10/25 09:39 Sodium Chloride IV 06/17/25 08:59 100 mls/hr QDAY PENELOPE Administration Insulin Degludec 12 unit 06/10/25 09:00 06/11/25 09:22 Insulin Degludec 5 Unit/0.05 Ml (Per 5 Units) SC 07/10/25 08:59 12 unit QDAY PENELOPE Administration Insulin Human Lispro 0 unit 06/09/25 07:30 06/11/25 07:26 Insulin Lispro (Admelog) 1 Unit/0.01 Ml Unit SC 07/09/25 07:29 Not Given AC [facility] Protocol Morphine Sulfate 2 mg 06/09/25 01:20 Morphine Sulf Inj 4 Mg/Ml Vial IVP 06/14/25 01:19 Q4HR PRN Pain Scale 4-10 (Severe Ondansetron HCl 4 mg 06/09/25 01:20 Ondansetron Inj 2 Mg/Ml Inj 2 Ml IVP 07/09/25 01:19 Q6H PRN NAUSEA OR VOMITING Protocol Pantoprazole Sodium 40 mg 06/09/25 09:00 06/11/25 09:15 Pantoprazole 40 Mg Tablet PO 07/09/25 08:59 40 mg QDAY PENELOPE Administration Sennosides 1 tab 06/09/25 01:20 Senna Tablet PO 07/09/25 01:19 QDAY PRN constipation Protocol
[2025-06-11] MEDS: cefTRIAXone 2 GM in SODIUM CHLORIDE 0.9% (Popper) 50 ML IV (09:48)
[2025-06-11 12:00] VITALS: BP 169/81; PULSE 78; RESP 16; TEMP 36.4; O2SAT 99
[2025-06-11] MEDS: INSULIN LISPRO (AdmeLOG) 1 UNIT/0.01 ML UNIT SC (12:15)
--- NOTE | 2025-06-11 13:18 | PC.CC ---
Asked to see patient for insulin injection training and DM education; LAUREN Adhikari assisted with interpretation. Met patient and at bedside. Patient states she has used insulin previously, in the form of a pre-filled insulin pen, most recently two years ago. 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 Had patient demonstrate assembly and preparation of insulin pen and perform injection into demonstration cube. Verbal coaching required. Patient did not have her glasses and had difficulty viewing numbers on the insulin pen and was coached to listen to the clicking as the dosage dial is turned. Patient had difficulty fully depressing plunger on insulin syringe due to both strength and dexterity. was encouraged to assist patient as needed. Patient able to verbalize hypoglycemia next steps. Patient familiar with finger-stick glucometer and was uncertain with using a CGM, however she is willing to try it. Requested glucometer kit from . Submitted PA request for [employer] Miladys 3 sensor and reader.
--- NOTE | 2025-06-11 13:37 | ESDS_ITS ---
<Statement entered by Dominique Hernandez DO - 06/14/25 07:19> I, Dominique Hernandez DO, attest that I was physically present for the montero portions of the service and evaluated the patient with the resident and I reviewed and discussed the case with the resident and agree with the resident's findings and plans of care as documented above Planned Discharge Date 06/11/25 DS: Providers Provider Date of admission: 06/09/25 02:11 Primary care physician: Vernon Velasquez MD Admitting Provider: Christian Alexandre MD Attending Provider on Admission: Dominique Hernandez DO Consults: 06/11/25 09:48 Referral Registered Dietitian Routine Comment: Attending Provider on DC: Dominique Hernandez DO Discharging Provider: Dominique Hernandez DO DS: Diagnosis Problem List Completed Was Problem List Reviewed/Reconciled?: Yes Hospital Course Hospital Course Hospital course: Hospital Course: Patient is a 70 yo F with PMH of hypertension, DM who presented to ED on 06/08/25 for burning micturition and abdominal pain; she was admitted on 06/09/25 for complicated UTI. Had ED visit on 05/20 and discharged on cefdinir; patient did not complete oral antibiotic course. Blood and urine culture taken at the previous ED visit showed Staph aureus in 1 out of 2 bottles and urine culture showing E. coli growing in the urine. She endorsed chills, nausea, weakness and 1 episode of vomiting. Also complained of cramping abdominal pain around the flank and suprapubic area radiating to the groin and chest and burning chest pain (GERD- like) especially when she does not eat food for a while. Also endorsed a dull headache. ED labs showed WBC 9.5, hgb 10.9, plt 447, Na 127, K 5.3, Cl 93, serum blood glucose 421, eGFR 53, lactate normal, ALP 117; UDS showed turbid urine, leukocyte esterase positive, WBC 821, urine bacteria 2+. CT abdomen and pelvis showed mild prominence of bilateral renal pelvicalyceal system and ureter and bilateral perinephric fat stranding. Patient admitted for pyelonephritis and glucose control. Patient was started on degludec 10 for glucose control, ceftriaxone 2g for pyelonephritis; she was also retaining urine, but voided and refused Arrington. On 06/10/25, had improving suprapubic pain; urine culture grew E. coli sensitive to ceftriaxone. patient also started on bethanechol for retention. On 06/11/25, patient symptoms had improved significantly; she was switched to Augmentin, and was considered stable for discharge. Patient was also advised to see a urologist if urinary symptoms persist. Discharge Instructions: You been discharged antibiotic Augmentin to be taken for 5 more days for treatment of complicated UTI. Recommended to start insulin for diabetes mellitus and using continuous glucose monitor, recommend following up with your primary care physician going over your recent hospitalization and discharge medications within 3-5 days of discharge. If symptoms persist or worsen, return to the Emergency Department. Problem List: # Acute pyelonephritis # Urinary retention # Staph aureus bacteremia, resolved # GERD # T2DM # Normocytic anemia # Borderline Hyperkalemia # Hypertension Senior resident attestation: Patient evaluated and examined at the bedside, plan of care discussed with rest of the team including my attending physician, except as noted. Quresh PGY3 Status at Discharge Overall status at discharge: patient is progressing back to baseline Time Spent with Patient Time attestation: Total time spent providing and/or coordinating discharge services: Time spent: Greater than 30 minutes Exam Vital Signs Temp Pulse Resp BP Pulse Ox O2 Del Method 97.6 F 78 16 169/81 H 99 Room Air 06/11/25 12:00 06/11/25 12:00 06/11/25 12:00 06/11/25 12:00 06/11/25 12:00 06/11/25 12:00 Narrative Exam General: A/O x3, no acute distress, well-nourished, well-developed Eyes: PERRL, EOMI. Anicteric, vision grossly intact. Ears: No ear pain, no ear discharge, Hearing grossly intact. Nose: No nasal discharge. Mouth/Throat: Moist mucous membranes, no redness, no lesions. Neck: Neck supple, non-tender, no cervical lymphadenopathy. Lungs: Clear NOREEN to auscultation and percussion, No accessory muscle use. Cardio: Normal S1/S2, regular rhythm, no murmurs, no JVD or carotid bruits. Abdomen: Soft, no palpable masses, peristalsis present, no guarding or rebound; suprapubic tenderness improved from yesterday Extremities: Symmetrical, no significant deformities, no peripheral edema , non-tender, peripheral pulses present. Skin: No rashes, no lesions, warm to touch. Neuro: No focal neurological deficits. Psych: Cooperative, appropriate mood and effect. Discharge Plan Plan Patient Disposition: HOME (Self Care) Care Plan Goals: You been discharged antibiotic Augmentin to be taken for 5 more days for treatment of complicated UTI. Recommended to start insulin for diabetes mellitus and using continuous glucose monitor, recommend following up with your primary care physician going over your recent hospitalization and discharge medications within 3-5 days of discharge. If symptoms persist or worsen, return to the Emergency Department. Se le nguyen dado de rebekah con el antibi?gareth Augmentin para abigail mellissa 5 d?as m?s para el tratamiento de brian infecci?n urinaria complicada. Se recomienda iniciar la insulinoterapia para la diabetes mellitus y utilizar un monitor continuo de glucosa. Se recomienda brian consulta de seguimiento con de la torre m?dico de cabecera para revisar de la torre reciente hospitalizaci?n y los medicamentos recetados al rebekah dentro de los 3 a 5 d?as posteriores al rebekah. Si los s?ntomas persisten o empeoran, regrese al servicio de urgencias. Prescriptions/Referrals Prescriptions/Med Rec: New bethanechol chloride 10 mg Tablet 10 mg PO TID 30 Days Qty: 90 0RF Premarin 0.625 mg/gram Cream 5 mg vaginal QDAY 30 Days Qty: 240 0RF insulin glargine [Lantus Solostar U-100 Insulin] 100 unit/mL (3 mL) insulin pen 8 unit subcut QAM Qty: 15 0RF (DME) FreeStyle Miladys 3 Sensor Device See Rx Instructions .Route Qty: 1 3RF Rx Instructions: As directed (DME) FreeStyle Miladys 3 [place] Misc See Rx Instructions .Route Qty: 1 0RF Rx Instructions: As directed (DME) pen needle, diabetic [1st Tier Unifine Pentips] 32 gauge x 5/32 needle See Rx Instructions .Route Qty: 100 3RF Rx Instructions: As directed amoxicillin-pot clavulanate 875-125 mg tablet 1 tab PO BID Qty: 10 0RF (DME) blood-glucose meter [Accu-Chek Guide Glucose Meter] Misc See Rx Instructions .Route Qty: 1 0RF Rx Instructions: As directed (DME) Accu-Chek Guide test strips Strip See Rx Instructions .Route Qty: 100 2RF Rx Instructions: As directed (DME) lancets [Accu-Chek Softclix Lancets] Misc See Rx Instructions .Route Qty: 200 1RF Rx Instructions: As directed Continued acetaminophen-codeine 300-30 mg tablet 1 tab PO Q8H MDD 6 PRN (Reason: pain) Qty: 20 0RF Discontinued cephalexin 500 mg capsule 500 mg PO QID Qty: 20 0RF ondansetron 4 mg tablet,disintegrating 4 mg PO TID PRN (Reason: nausea and vomiting) 30 Days Qty: 10 0RF cefdinir 300 mg capsule 300 mg PO BID Qty: 14 0RF Referrals: Vernon Velasquez MD [Primary Care Provider, Family Practice] Patient/Caregiver Discharge Instructions Education Materials: Urinary Tract Infections in Women, UITs Women Print Language: Portuguese Stand Alone Forms: Elisa Award Info., Patient Portal Info Letter Discharge Order Discharge Orders: Discharge (Routine); Ordered 06/11/25 Ordered By: Buddy Escobar Quality Discharge Quality Measures none
== END 2025-06-11 13:12 | disposition home or self-care (01) | DRG 463 ==
LOC: SERX 22:58 → SERHOLD 06-09 02:59 → S3SX 06-09 04:11
PROVIDERS: Physician Assistant; Admitting Provider Student in an Organized Health Care Education/Training Program; Emergency Provider Emergency Medicine; PCP Family Medicine; Visit Provider Internal Medicine
DX: N39.0 Urinary tract infection, site not specified (principal); N10 Acute pyelonephritis; I10 Essential (primary) hypertension; E11.9 Type 2 diabetes mellitus without complications; K21.9 Gastro-esophageal reflux disease without esophagitis; Z90.49 Acquired absence of other specified parts of digestive tract; E87.5 Hyperkalemia; D64.89 Other specified anemias; N32.89 Other specified disorders of bladder; B96.20 Unspecified Escherichia coli [E. coli] as the cause of diseases classified elsewhere; Z79.4 Long term (current) use of insulin; B95.61 Methicillin susceptible Staphylococcus aureus infection as the cause of diseases classified elsewhere
CPT/HCPCS: 36415; 71045; 74176; 80053; 80061; 81001; 83036; 83605; 83735; 84100; 84145; 84443; 84484; 85025; 85610; 87040; 87077; 87086; 87186; 93005; 93225; 93306; 96361; 96365; 96366; 96372; 96375; 99283; J0696; J1644; J1815; J2270; J2405; J3475; J3490; J7030; J7050; J7120; A9270; J1920